=== PATIENT | female | born 1960 | race Caucasian/White ===

== ENCOUNTER → 2016-09-12 | Outpatient (CLI) | payer OTHER ==
--- NOTE | 2016-09-12 16:49 | US ---
EXAMINATION TYPE: US pelvis complete transvag DATE OF EXAM: 09/12/2016 4:19 PM COMPARISON: NONE CLINICAL HISTORY: 55-year-old female hypertrophy of uterus Date of LMP: 4 years ago TECHNIQUE: Transabdominal sonographic images of the pelvis were obtained. Transvaginal scanning was medically necessary to better evaluate the anatomy. FINDINGS: Uterus: Markedly heterogeneous and unable to penetrate transvaginally. It measures approximately 15. 8 x 6.0 x 14.2cm . Multiple fibroids are present, largest along the right fundus measuring 8.8 cm. Endometrial Stripe: Obscured. Right Ovary: 3.9 x 2.4 x 1.8cm with a tiny 6 mm cyst. Left Ovary: unable to visualize No evident adnexal abnormality or cul-de-sac free fluid. IMPRESSION: 1. Bulky fibroid uterus. Largest fibroid measures up to nearly 9 cm. 2. The endometrial stripe is obscured. Also, the uterus was suboptimally visualized on transvaginal s hugo. If fibroid mapping or further assessment of the junctional anatomy is desired, consider fem analy pelvic MRI. 3. Unable to visualize the left ovary.
== END | disposition home or self-care (01) ==
LOC: RADUSWWP 15:48
PROVIDERS: ATTEND Family Medicine
DX: D25.9 Leiomyoma of uterus, unspecified (principal)
CPT/HCPCS: 76830; 76856

== ENCOUNTER 2016-10-13 16:25 | Emergency (ER) | payer OTHER ==
[2016-10-13 16:49] VITALS: BP 123/75; PULSE 70; RESP 18; TEMP 98.2
== END 2016-10-13 18:16 | disposition left against medical advice (07) ==
LOC: EC 16:25
DX: M54.9 Dorsalgia, unspecified (principal)
CPT/HCPCS: 99499

== ENCOUNTER → 2016-10-13 | Outpatient (CLI) | payer OTHER ==
--- NOTE | 2016-10-15 10:07 | MM ---
Reason for exam: clinical finding. Baseline mammogram. History: Patient is postmenopausal and is nulliparous. Physical Findings: Nurse did not find any significant physical abnormalities on exam. MG Diagnostic Mammo w CAD SKIP Bilateral CC, MLO, and LM view(s) were taken. Finding: There are grouped/clustered calcifications in both breasts. These results were verbally communicated with the patient and result sheet given to the patient on 10/13/16. ASSESSMENT: Suspicious, BI-RAD 4 Probably benign, BI-RAD 3 finding in the left breast. Suspicious, BI-RAD 4 abnormality in the right breast. RECOMMENDATION: Stereotactic core biopsy of the right breast. Called Dr. Martinez with mammographic findings and has scheduled an appointment for the patient for 11/20/16 at 9:[address] Obrien. PRELIMINARY REPORT CALLED AND FAXED TO DR. OBRIEN ON 10/15/16 AT 300/TP. Follow-up diagnostic mammogram of the left breast in 6 months.
== END | disposition home or self-care (01) ==
LOC: RADMAMWWP 14:45
PROVIDERS: ATTEND Family Medicine
DX: N63 Unspecified lump in breast (principal)

== ENCOUNTER → 2016-11-05 | Outpatient (CLI) | payer OTHER ==
--- NOTE | 2016-11-05 12:04 | XR ---
EXAMINATION TYPE: XR cervical spine comp DATE OF EXAM: 11/05/2016 11:58 AM COMPARISON: NONE HISTORY: Cephalgia TECHNIQUE: 5 view cervical spine FINDINGS: Foramen are patent. Prevertebral space is normal. Disc heights are preserved. Vertebral bod y heights are preserved. Alignment is normal. Odontoid is unremarkable. IMPRESSION: 1. Normal 5 view cervical spine.
--- NOTE | 2016-11-05 12:05 | XR ---
EXAMINATION TYPE: XR shoulder complete RT DATE OF EXAM: 11/05/2016 11:58 AM COMPARISON: NONE HISTORY: Pain TECHNIQUE: Shoulder examined in 3 FINDINGS: The humeral head articulates with the glenoid. The acromio-clavicular junction is normal. No acute fractures or dislocations are evident. A follow up study can be performed 7-10 days from acute trauma for continued pain. IMPRESSION: 1. Normal Shoulder
== END | disposition home or self-care (01) ==
LOC: RADXRMAIN 11:12
PROVIDERS: ATTEND Family Medicine
DX: M25.511 Pain in right shoulder (principal); M54.2 Cervicalgia
CPT/HCPCS: 72050

== ENCOUNTER → 2016-12-08 | Day surgery (SDC) | payer OTHER ==
[~2016-12-08] MED LIST: ALPRAZolam 0.25 MG TAB ONE; BACITRACIN OINT 1 EACH PACKET TOPICAL ONE; LIDOCAINE 1% INJ 10MG/ML (20 ML MDV) ONE; SODIUM BICARB 4% 5 ML VIAL (0.48 MEQ/ML) ONE
--- NOTE | 2016-12-08 17:07 | MM ---
EXAMINATION TYPE: MG stereo VAD BX RT DATE OF EXAM: 12/08/2016 4:34 PM COMPARISON: 10/13/2016 CLINICAL HISTORY: 56-year-old female referred for right breast calcification biopsy TECHNIQUE: Stereotactic guided core biopsy of the right breast. FINDINGS: The procedure of stereotactic guided core biopsy was explained to the patient. Benefits, alternatives, and risks were discussed. An informed consent was then obtained. The shortness pathway for biopsy was from above. A lateral approach was chosen as the microcalcifications could not be as well visualized with a CC approach. I performed the localization followed by the procedure. An 8 gauge mammotome vacuum assisted biopsy gun was used to obtain 6 core samples. The patient tolerated the procedure well without any immediate complication. The patient was kept in the radiology department for short stay after the procedure and then discharged home in stable condition. Numerous targeted calcifications are identified in specimen mammogram. Post biopsy mammogram shows the clip to appear in satisfactory position relative to the targeted area of concern on the preprocedure images. IMPRESSION: SUCCESSFUL, UNCOMPLICATED STEREOTACTIC GUIDED CORE BIOPSY OF RIGHT BREAST UPPER OUTER QUADRANT MICROCALCIFICATIONS, FULL PATHOLOGY RESULTS TO FOLLOW. RECOMMENDATION: 1. Follow-up pathology for the right breast. 2. Six-month follow-up mammogram for the left breast calcifications. 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 CALCIFICATIONS IDENTIFIED. RECOMMENDATION: 1. Surgical consult of the right breast. 2. Given pathologic findings in the right breast, recommend proceeding with stereotactic core needle biopsy of left breast microcalcifications at this time rather than 6 month followup. MTDD
== END ==
LOC: RADMAMWWP 13:42
PROVIDERS: ATTEND Family Medicine
DX: D05.11 Intraductal carcinoma in situ of right breast (principal); N64.89 Other specified disorders of breast; R92.8 Other abnormal and inconclusive findings on diagnostic imaging of breast
CPT/HCPCS: 88305; 88342; 88341; 19081; A4648; J2001

== ENCOUNTER → 2017-01-10 | Outpatient (CLI) | payer OTHER ==
--- NOTE | 2017-01-14 07:00 | BMR ---
EXAMINATION TYPE: MR breast BILAT wo/w con DATE OF EXAM: 01/10/2017 11:25 AM HISTORY: Newly diagnosed right-sided breast cancer after stereotactic guided core biopsy showing low- grade DCIS. CONTRAST: Multiplanar, multisequence images of the breasts were acquired utilizing 12 mL intravenous MultiHance gadolinium contrast. TECHNIQUE: A series of fat and water weighted images in the long and short axis views of both breasts are obtained in conjunction with dynamic contrast MRI with subtraction technique. Three-dimensional and additional postprocessing imaging is created on independent workstation and reviewed during [facility] interpretation of this study. REFERENCE: Diagnostic bilateral breast mammogram October 13, 2016 BI-RADS 3 left breast. BI-RADS 4 r ight breast. FINDINGS: There is heterogeneously dense fibroglandular tissue redemonstrated throughout both breasts . There are few tiny simple appearing cysts scattered throughout both breasts noted on T2 weighted im ages. There is mild asymmetric parenchymal enhancement bilaterally, left greater than right. Bilateral benign appearing axillary lymph nodes are seen. No suspicious intramammary lymph nodes are identified. The chest wall is intact. Regarding the left breast there is some asymmetric glandular enhancement posterior depth upper outer quadrant that is believed to correlate to area of group of calcifications seen on mammogram. Dynamic postcontrast sequences show fairly benign gradual enhancement at this level. There is additional 3 mm round focus middle depth in the upper slight medial aspect near 1:00 position with benign gradual en hancement that is well-defined and T2 hyperintense favoring benign etiology, too small to further ch aracterize. No pathologic enhancement is clearly seen. No suspicious masses are clearly seen. Regarding the right breast there is artifact from biopsy clip noted upper outer quadrant seen best ax ial STIR image 23 and post contrast image 161. Linear scar from lateral approach is seen. There is mi nimal residual enhancement just medial to artifact from clip. No additional areas of abnormal patholo gic enhancement or suspicious masses in right breast are identified. IMPRESSION: Biopsy-proven malignancy right breast. Increasing group of calcifications left breast not overly suspicious on MRI but correlation is present. No MRI evidence for additional area of invasive malignancy in either breast. BI-RADS 6 right breast- biopsy-proven malignancy. BI-RADS 4 left breast - increasing group of calcifications in patient with known newly diagnosed carc inoma opposite breast. Recommendation: Appropriate surgical management for newly diagnosed right breast carcinoma. Would adv ise stereotactic guided core biopsy of group of calcifications left breast.
== END | disposition home or self-care (01) ==
LOC: RADMRIMAIN 09:58
PROVIDERS: ATTEND Internal Medicine Hematology & Oncology
DX: C50.911 Malignant neoplasm of unspecified site of right female breast (principal); R92.1 Mammographic calcification found on diagnostic imaging of breast
CPT/HCPCS: 0159T; C8908; A9577; 77059

== ENCOUNTER → 2017-01-16 | Outpatient (CLI) | payer OTHER ==
--- NOTE | 2017-01-16 12:03 | XR ---
EXAMINATION TYPE: XR lumbosacral spine min 4V DATE OF EXAM: 01/16/2017 11:31 AM COMPARISON: NONE HISTORY: Low back pain TECHNIQUE: 5 view lumbar spine FINDINGS: Mild facet degenerative changes present. Disc heights are preserved. Vertebral body heights are preserved. Alignment is normal. No spondylolytic defects are evident. There is a grade 1 spondyl olisthesis of L4 anterior and L5. IMPRESSION: 1. Grade 1 spondylolisthesis of L4 anterior to L5. 2. Minimal facet degenerative changes.
== END ==
LOC: RADXRMAIN 11:13
PROVIDERS: ATTEND Family Medicine
DX: M43.16 Spondylolisthesis, lumbar region (principal); M47.816 Spondylosis without myelopathy or radiculopathy, lumbar region
CPT/HCPCS: 72110

== ENCOUNTER → 2017-02-23 | Outpatient (CLI) | payer OTHER ==
--- NOTE | 2017-02-23 09:02 | MR ---
MR lumbar spine wo con CLINICAL HISTORY: Spondylolisthesis lsp, back pain Multiplanar, multiecho imaging of the lumbar spine was obtained without contrast on a 3 Emily magnet. REFERENCE: Previous study dated 03/05/2016. FINDINGS: Paraspinal soft tissues are normal. Vertebral body height and alignment are maintained. There is no spondylolysis or spondylolisthesis. Cord signal is normal. The conus ends normally at the level of the mid body of L2. At T12-L1, there is mild facet arthropathy. At L1-2,The intervertebral foramina are well maintained. There is minimal hypertrophic spondylosis an teriorly. There is no significant compressive discopathy. There is mild capsulitis and hypertrophic c hange in the facets. At L2-3, the intervertebral foramina are well maintained. There is no significant compressive discopa thy. There is mild hypertrophic change and capsulitis within the facets. At L3-4, there is mild disc space loss. The intervertebral foramina are well maintained. There is a d iffuse disc displacement. This hypertrophic changes in the facets. There is mild trefoiling of the th ecal sac. At L4-5, is mild disc space loss. There is mild, bilateral intervertebral foraminal narrowing, worse on the left than the right. There is a diffuse disc displacement. There are fairly marked hypertrophi c changes in the facets. There is mild trefoiling of the thecal sac. At L5-S1, there is mild facet arthropathy. IMPRESSION: 1. DIFFUSE DEGENERATIVE DISC DISEASE AND FACET ARTHROPATHY. 2. NO SIGNIFICANT COMPRESSIVE DISCOPATHY. 3. LEFT GREATER THAN RIGHT INTERVERTEBRAL FORAMINAL NARROWING, L4-5.
== END | disposition home or self-care (01) ==
LOC: RADMRIMAIN 07:14
PROVIDERS: ATTEND Family Medicine
DX: M99.73 Connective tissue and disc stenosis of intervertebral foramina of lumbar region (principal); M51.36 Other intervertebral disc degeneration, lumbar region; M46.96 Unspecified inflammatory spondylopathy, lumbar region
CPT/HCPCS: 72148

== ENCOUNTER → 2017-02-26 | Day surgery (SDC) | payer OTHER ==
[2017-02-26 13:48] VITALS: RESP 16; BMI 25.0
--- NOTE | 2017-02-26 14:47 | USB ---
Reason for exam: additional evaluation requested from prior study. History: Patient is postmenopausal, has history of breast cancer at age 56, and is nulliparous. Malignant MG stereo VAD BX RT of the right breast, December 08, 2016. US Breast LT Left breast ultrasound includes all four quadrants, the retroareolar region and axilla. Finding demonstrates a 0.4 x 0.2 x 0.5cm mixed lesion at 1 o'clock. These results were verbally communicated with the patient and result sheet given to the patient on 02/26/17. ASSESSMENT: Suspicious, BI-RAD 4 RECOMMENDATION: Ultrasound core biopsy of the left breast. (1 o'clock, 7cm from the nipple)
--- NOTE | 2017-02-26 16:12 | USB ---
EXAMINATION TYPE: US biopsy breast VAD LT DATE OF EXAM: 02/26/2017 CLINICAL HISTORY: R92.8 ABN MAMMOGRAM. Abnormal MRI left breast, known cancer TECHNIQUE: Ultrasound guided core biopsy of left breast. COMPARISON: MRI report 01/10/2017 FINDINGS: The procedure of ultrasound guided core biopsy was explained to the patient. Benefits, alt ernatives, and risks were discussed. An consultation with the referring physician, biopsy of the ultr asound abnormality is recommended prior to stereotactic core biopsy. Prescanning was performed which identified 2 hypoechoic areas at the 1:00 position left breast, either which potentially could corres pond to the MRI description. The decision to biopsy both of these nearly adjacent lesions was made fo r with the patient. An informed consent was then obtained. A timeout was performed. The patient was placed in supine positioning for imaging and for the procedure. The overlying skin w as prepped and draped in usual sterile fashion. Lidocaine buffered with bicarbonate was used as anes thetic into the skin and subcutaneous tissue up to area of concern in the left breast. A single jamee was made with surgical scalpel. Under ultrasound guidance, a 12-gauge vacuum assisted biopsy gun device was used to obtain 10 core sa mples. Following this, a biopsy clip was left adjacent to the lesion. This lesion was labeled 1:00 position zone C and is against the chest wall. Under ultrasound guidance, a separate through the same entrance skin site 12-gauge vacuum assisted bi opsy gun device was used to obtain 4 core samples the second site labeled 1:00 position axillary tail which is near the first biopsy site. The 4 biopsies appear to completely removed this location. Foll owing this, a biopsy clip was left adjacent to the lesion. The patient tolerated the procedure well without any immediate complication. The patient was kept in the radiology department for transfer to the stereotactic core room for an additional procedure. IMPRESSION: 1. Successful ultrasound guided core biopsies 2 lesions left 1:00 position discussed above. Recommendations: 1. Recommendations are pending pathology results. IMPRESSION: Successful, uncomplicated ultrasound guided core biopsy of area of concern in the breast, full pathology results to follow.
[2017-02-26 16:48] VITALS: BP 120/78; PULSE 64; TEMP 98.4
--- NOTE | 2017-03-02 12:54 | MM ---
EXAMINATION TYPE: MG stereo VAD BX LT DATE OF EXAM: 02/26/2017 COMPARISON: 10/13/2016 CLINICAL HISTORY: Abnormal mammogram TECHNIQUE: Stereotactic guided core biopsy of left breast. FINDINGS: The procedure of stereotactic guided core biopsy was explained to the patient. Benefits, a lternatives, and risks were discussed. An informed consent was then obtained. [facility] was chosen. Shortness pathway was medial lateral oblique approach. Radiology performed the localization, radiology Dr. Ranegl performed the remainder of the procedure. A vacuum assisted biopsy gun was used to obtain multiple core samples. The patient tolerated the procedure well without any immediate complication. The patient was kept in the radiology department for short stay after the procedure and then discharged home in stable condi tion. Targeted calcifications are identified in specimen mammogram. Post biopsy mammogram shows the clip to appear in satisfactory position relative to the targeted area of concern on the preprocedure images. IMPRESSION: 1. Successful stereotactic core biopsy left breast calcifications.
== END ==
LOC: EDSTATUS 02-03 09:40 → RADUSWWP 13:28
PROVIDERS: ATTEND Surgery
DX: D05.82 Other specified type of carcinoma in situ of left breast (principal); D05.12 Intraductal carcinoma in situ of left breast; N60.22 Fibroadenosis of left breast; N64.89 Other specified disorders of breast; Z85.3 Personal history of malignant neoplasm of breast; Z88.6 Allergy status to analgesic agent; Z88.5 Allergy status to narcotic agent
CPT/HCPCS: 88305; 88342; 88341; 19081; 19083; 19084; 76641; A4648 ×2; J2001

== ENCOUNTER 2017-04-01 09:23 | Day surgery (SDC) | payer OTHER ==
--- NOTE | 2017-03-13 13:40 | P.GSHP ---
History of Present Illness H&P Date: 03/13/17 Chief Complaint: Bilateral breast cancer Patient is known to our service. She underwent initial workup of the right breast and was found to have calcifications. A stereotactic core biopsy revealed low-grade DCIS at that time. She was initially seen by different surgeon but switched over to my service following that. She is a family history of breast cancer and an aunt on the father's side. She has seen oncology. There was also abnormalities in the left hand side that warranted a MRI. Subsequent biopsies 3 revealed high-grade DCIS and low to intermediate grade DCIS. Because of the bilaterality patient is interested in bilateral mastectomy. She is ER/MO positive. Past Medical History Past Medical History: Fibromyalgia Additional Past Medical History / Comment(s): Chronic back pain History of Any Multi-Drug Resistant Organisms: None Reported Past Surgical History: No Surgical Hx Reported Past Anesthesia/Blood Transfusion Reactions: No Reported Reaction Past Psychological History: No Psychological Hx Reported Smoking Status: Current every day smoker Past Alcohol Use History: None Reported Past Drug Use History: None Reported - Past Family History Mother Family Medical History: Myocardial Infarction ([place]) Father Family Medical History: Myocardial Infarction ([place]) Medications and Allergies Home Medications Medication Instructions Recorded Confirmed Type Pregabalin [Lyrica] 400 mg PO BID 10/13/16 02/26/17 History HYDROcodone/APAP 7.5-325MG [[place] 7.5 each PO Q6HR PRN 02/24/17 02/26/17 History 7.5-325] Allergies Allergy/AdvReac Type Severity Reaction Status Date / Time tramadol Allergy Unknown Verified 02/26/17 13:49 acetaminophen AdvReac Rash/Hives Verified 02/26/17 13:49 ibuprofen [From Motrin] AdvReac Rash/Hives Verified 02/26/17 13:49 Surgical - Exam Physical exam: General: Well-developed, well-nourished HEENT: Normocephalic, sclerae nonicteric Chest: Previous scars noted bilaterally, no palpable masses bilaterally, no adenopathy Abdomen: Nontender, nondistended Extremities: No edema Neuro: Alert and oriented Assessment and Plan (1) Bilateral breast cancer Narrative/Plan: The clinical scenario was discussed in detail with the patient. Lumpectomy on the right-hand side and possibly even on the left-hand side was discussed briefly is an option however given the bilaterality the patient was most interested in bilateral mastectomy which I believe is the most reasonable course of action. The noninvasiveness of these lesions were discussed with the patient. Because of the mastectomy being the chosen procedure [place] lymph node biopsy was advised. The risks of bleeding, infection, seroma, numbness, recurrence, potential need for axillary dissection, lymphedema, and anesthesia- related, locations were discussed. The option of rest reconstruction was also discussed. She is not interested in that because of family members who have had poor experience with that. All these options were thoroughly discussed and the patient would like for us to proceed at this time. Status: Acute
[2017-03-25 09:06] VITALS: BMI 25.0
[~2017-04-01 09:23] MED LIST changes: -ALPRAZolam 0.25 MG TAB ONE; +ALPRAZolam 0.5 MG TAB PO PRN; -BACITRACIN OINT 1 EACH PACKET TOPICAL ONE; +DEXAMETHASONE SOD PHOSPHATE 10 MG/ML 1 ML VIAL IV ONE; +HEPARIN SODIUM,PORCINE 5,000 UNIT/ML 1 ML VIAL SQ ONE; +LACTATED RINGERS 1,000 ML IV SCH; +LIDOCAINE 1% 20 ML VIAL (10MG/ML) FOR IV START INTRADERMA PRN; -LIDOCAINE 1% INJ 10MG/ML (20 ML MDV) ONE; +Pre Op ABX Message 1 EACH MISC MISCELLANE ONE; +SCOPOLAMINE 1.5MG/72HR PATCH TRANSDERM ONE; -SODIUM BICARB 4% 5 ML VIAL (0.48 MEQ/ML) ONE
[2017-04-01] MEDS ORDERED: ALPRAZolam 0.5 MG TAB PO PRN (10:45)
[2017-04-01] MEDS ORDERED: NALOXONE 0.4 MG/ML 1 ML VIAL IV PRN ×2 (10:45→21:14)
[2017-04-01] MEDS ORDERED: IV FLUID CONTINUATION 1,000 ML IV ONE (15:56)
--- NOTE | 2017-04-01 15:56 | NM ---
EXAMINATION TYPE: NM sentinel node injection, NM sentinel node injection DATE OF EXAM: 04/01/2017 COMPARISON: NONE HISTORY: History of right breast cancer. TECHNIQUE AND FINDINGS: The procedure of sentinel lymph node injection was explained to the patient. The benefits, alternatives, and risks were discussed. An informed consent was then obtained. Overlying skin is cleaned with sterile alcohol. Lidocaine buffered with bicarbonate was used as anes thetic into the skin and subcutaneous tissue surrounding the nipple. Following this, 540 (accession [id number]), 525 (accession [id number]) uCi Tc 99m Filtered Sulfur Colloid was injected into 4 equivalent doses at 12, 3, 6, and 9:00 position surrounding the right nipple intradermally. The injection sites were massaged by instrumentation technologist for 10 minutes after injection. T he patient tolerated the procedure well without any immediate complication. The patient was kept in the radiology department for short stay after the procedure and then taken to surgery for surgical pr ocedure what is presumed intraoperative gamma probe will be used for sentinel lymph node detection. IMPRESSION: Right breast radiotracer injection for sentinel node localization as above.
[2017-04-01] MEDS ORDERED: MIDAZOLAM 2 MG/2 ML VIAL IV ONE (15:58)
[2017-04-01] MEDS ORDERED: fentaNYL (PF) 50 MCG/ML 2 ML AMP IV ONE (15:58)
[2017-04-01] MEDS ORDERED: HYDROmorphone (PF) 1 MG/ML ONE (16:55)
[2017-04-01] MEDS ORDERED: ONDANSETRON 4 MG/2 ML VIAL ONE (16:55)
[2017-04-01] MEDS ORDERED: METHYLENE BLUE 10 MG/ML 1 ML VIAL INJ ONE (16:55)
[2017-04-01] MEDS ORDERED: LIDOCAINE 1% INJ 10MG/ML (20 ML MDV) ONE (16:55)
[2017-04-01] MEDS ORDERED: fentaNYL (PF) 50 MCG/ML 2 ML AMP ONE (16:55)
[2017-04-01] MEDS ORDERED: SUCCINYLCHOLINE CHLORIDE 100 MG/5 ML SYR IV ONE (16:55)
[2017-04-01] MEDS ORDERED: PROPOFOL 10 MG/ML 20 ML VIAL IV ONE (16:55)
[2017-04-01] MEDS ORDERED: GLYCOPYRROLATE 0.2 MG/ML 2 ML VIAL ONE (16:55)
[2017-04-01] MEDS ORDERED: NEOSTIGMINE 1 MG/ML 10 ML VIAL ONE (16:55)
[2017-04-01] MEDS ORDERED: ROCURONIUM BROMIDE 10 MG/ML 10 ML VIAL IV ONE (16:55)
[2017-04-01] MEDS ORDERED: MIDAZOLAM 2 MG/2 ML VIAL ONE (16:55)
[2017-04-01] MEDS ORDERED: LACTATED RINGERS 1,000 ML IV ONE (17:05)
[2017-04-01] MEDS: HYDROmorphone 1 MG/ML 1 ML SYRINGE IVP PRN ×5 (19:43→21:59)
[2017-04-01] MEDS: HYDROmorphone 1 MG/ML 1 ML SYRINGE IVP ONE ×2 (20:16→20:33)
[2017-04-01] MEDS ORDERED: KETOROLAC 30 MG/ML 1 ML VIAL IVP ONE (20:16)
[2017-04-01] MEDS ORDERED: ONDANSETRON 4 MG/2 ML VIAL IVP PRN (21:14)
--- NOTE | 2017-04-01 21:19 | P.OP ---
Date of Procedure: 04/01/17 Preoperative Diagnosis: Postoperative Diagnosis: Procedure(s) Performed: SiPREOPERATIVE DIAGNOSIS: Bilateral breast cancer POSTOPERATIVE DIAGNOSIS: Same PROCEDURE: Bilateral simple mastectomy with bilateral sentinel lymph node biopsy SURGEON: Camille EBL: Minimal ANESTHESIA: General COMPLICATIONS: None OPERATIVE PROCEDURE: Patient was placed on the operating room table in the supine position. 3 mL of methylene blue was injected into the subareolar space bilaterally. The breast was then massaged for 5 minutes. Using the skin marker the proposed incision sites were drawn out on the chest wall. The right side was addressed first. The superior incision was first created. The incision was elliptical in nature encompassing the nipple areolar complex. Flaps were raised superiorly until the chest wall was reached. The axilla was then addressed. Blunt dissection surprisingly did reveal immediately 2 hot and blue lymph nodes along with the feeding blue colored lymphatic vessel. Both of these lymph nodes were removed. An additional sentinel was identified as well and removed. The mastectomy incision was then created inferiorly and flaps were again raised until the chest wall was reached. The breast was removed from the chest wall using electrocautery. Multiple vessels were divided using either electrocautery or the clip twitchell operator. The area was irrigated. No bleeding was seen. The sentinel lymph nodes and right simple mastectomy specimen were sent separately for permanent sectioning. The left side was addressed in a similar fashion. Again an incision was elliptical in nature encompassing the nipple areolar complex. Flaps were raised superiorly until the chest wall was reached. The axilla was then addressed. On the left-hand side an additional 3 sentinel lymph nodes were found and sent to pathology for permanent sectioning. The flaps were then raised inferiorly and the breast was removed from the chest wall in a similar fashion using electrocautery. Small vessels were clipped using the Ligaclip. A drain was placed beneath the flaps of the mastectomy incision bilaterally. The subcutaneous tissues were then closed using 3-0 Vicryl sutures and the skin was closed using a running 4-0 Monocryl stitch. Prineo dressing was used along the entire length of the incision with Dermabond. The drain was sutured in place using a 2-0 silk stitch. DISPOSITION: Stable to recovery room Implants: Indications for Procedure: Operative Findings: Description of Procedure:
[2017-04-01] MEDS: HEPARIN SODIUM,PORCINE 5,000 UNIT/ML 1 ML VIAL SQ SCH ×2 (23:43→23:49)
[2017-04-02 02:26] VITALS: RESP 16
[2017-04-02] MEDS: D5-0.45% NACL WITH KCL 20MEQ/L 1,000 ML IV SCH ×4 (03:43→12:06)
[2017-04-02] MEDS: HYDROmorphone 1 MG/ML 1 ML SYRINGE IVP PRN ×4 (03:48→15:42)
[2017-04-02] MEDS: FAMOTIDINE 20 MG TAB PO SCH ×2 (09:05→20:54)
[2017-04-02] MEDS: HEPARIN SODIUM,PORCINE 5,000 UNIT/ML 1 ML VIAL SQ SCH ×2 (09:06→15:42)
--- NOTE | 2017-04-02 19:50 | P.PN ---
Subjective Principal diagnosis: Bilateral breast cancer Patient complaining of mild to moderate discomfort today. She does admit that its improved from yesterday. She is ambulating. Drains have gone from sanguinous to serosanguineous. Objective - Vital Signs Vital signs: Vital Signs Temp 98.9 F 04/02/17 16:30 Pulse 74 04/02/17 16:30 Resp 16 04/02/17 16:30 BP 112/69 04/02/17 16:30 Pulse Ox 95 04/02/17 16:30 Intake & Output 04/02/17 04/02/17 04/03/17 06:59 18:59 06:59 Intake Total 940 200 Output Total 750 900 Balance 190 -700 Intake: IV 300 Oral 640 200 Output: Drainage 50 100 Left 30 50 right "A" 20 50 Urine 650 800 Estimated Blood Loss 50 Other: Voiding Method Toilet Toilet # Voids 1 2 - Exam Bilateral chest incisions clean and dry without ischemia only mild tenderness no hematoma Assessment and Plan (1) Bilateral breast cancer Narrative/Plan: Continue increasing activity. Anticipate discharge tomorrow. Status: Acute
[2017-04-02] MEDS: HYDROcodone/APAP 5-325MG 1 EACH TAB PO PRN (20:46)
[2017-04-03] MEDS: HEPARIN SODIUM,PORCINE 5,000 UNIT/ML 1 ML VIAL SQ SCH (00:46)
[2017-04-03] MEDS: HYDROcodone/APAP 5-325MG 1 EACH TAB PO PRN ×3 (00:47→10:15)
[2017-04-03] MEDS: FAMOTIDINE 20 MG TAB PO SCH (09:01)
[2017-04-03 09:57] VITALS: BP 142/83; PULSE 75; TEMP 96.9
--- NOTE | 2017-04-03 11:22 | P.DS ---
Providers Expected date of discharge: 04/03/17 Attending physician: Emanuel Obrien Primary care physician: Abhishek Martinez - Discharge Diagnosis(es) (1) Bilateral breast cancer Patient is admitted for elective bilateral mastectomy. The surgery did not start until later in the afternoon as there was not enough radiotracer ordered for her bilateral sentinel lymph node procedure. Postoperatively the patient has done well. Slightly greater than expected discomforts. Drains are draining appropriately. Vital signs of been stable. Her incisions are well healing with no evidence of ischemia or hematoma. She would like to go home today. The patient will follow up me in the office in one week. Prescription [place] 7.5 provided. Status: Acute Plan - Discharge Summary New Discharge Prescriptions: No Action Pregabalin [Lyrica] 200 mg PO BID HYDROcodone/APAP 7.5-325MG [[place] 7.5-325] 1 tab PO Q6HR PRN PRN Reason: Pain Discharge Medication List Pregabalin [Lyrica] 200 mg PO BID 10/13/16 [History] HYDROcodone/APAP 7.5-325MG [[place] 7.5-325] 1 tab PO Q6HR PRN 02/24/17 [History] Follow up Appointment(s)/Referral(s): Emanuel Obrien MD [Medical Doctor] - 04/09/17 11:10 am Patient Instructions/Handouts: [facility] Drain Care (DC), Skin Adhesive Care (DC), Mastectomy (DC) Activity/Diet/Wound Care/Special Instructions: [facility] [phone] No heavy lifting, limit to 10 pounds or less. You may shower today, but no soaking baths or going underwater. If any fever greater than 101, redness or drainage from the incisions or foul drainage in the drains, call your doctor or come to ER Drink plenty of fluids and eat as tolerated Empty and record the drains 3-4 times a day. Please review the attached instructions on mastectomy, SHAILA drains, and skin adhesives Discharge Disposition: HOME WITH HOME HEALTH SERVICES
== END 2017-04-03 10:26 | disposition home health service (06) ==
LOC: OR 09:23 → 6PED 10:50 → OR 04-03 10:26
PROVIDERS: ATTEND Surgery
DX: D05.11 Intraductal carcinoma in situ of right breast (principal); Z80.3 Family history of malignant neoplasm of breast; M79.7 Fibromyalgia; Z79.899 Other long term (current) drug therapy; Z88.6 Allergy status to analgesic agent; Z88.5 Allergy status to narcotic agent
CPT/HCPCS: 88342; 88307; 88341; 38792; 19307; A9541; J2250; J1644 ×3; J1100; J2710; J2405; J2001; Q9968; J3010; J1885; J1170 ×2; J0330; J2704

== ENCOUNTER 2017-06-16 11:00 | Emergency (ER) | payer OTHER ==
[2017-06-16 11:07] VITALS: BP 140/73; PULSE 73; RESP 18; TEMP 96.9
[2017-06-16] MEDS ORDERED: HYDROcodone/APAP 7.5-325MG 1 EACH TAB PO ONE (11:21)
--- NOTE | 2017-06-16 11:50 | XR ---
EXAMINATION TYPE: XR chest 2V DATE OF EXAM: 06/16/2017 COMPARISON: NONE HISTORY: Contusion after fall with history of breast cancer TECHNIQUE: Frontal and lateral views of the chest are obtained. FINDINGS: There is no focal air space opacity, pleural effusion, or pneumothorax seen. The cardiac silhouette size is within normal limits. The osseous structures are intact. Surgical clips are seen within the right breast tissue in the left breast tissue from prior mastectomy. IMPRESSION: No acute cardiopulmonary process. No pneumothorax or displaced rib fractures.
--- NOTE | 2017-06-16 12:25 | ED ---
Fall HPI - General Chief Complaint: Fall Stated Complaint: Fall-Chest Pain Time Seen by Provider: 06/16/17 11:16 Source: patient, RN notes reviewed Mode of arrival: ambulatory Limitations: no limitations - History of Present Illness Initial Comments: This a 56-year-old female presents emergency Department chief complaint of chest wall pain. Patient states that a few hours prior arrival she was hanging up some curtains in which she stepped on a curtain on the ground and states that she slipped into her dryer. She states she was less than 1 foot away from it when it she struck it. Patient states that she does not feel short breath she states she's has pain along her ribs. Denies head injury no LOC. Patient denies any bruising - Related Data Home Medications Medication Instructions Recorded Confirmed Pregabalin [Lyrica] 200 mg PO BID 10/13/16 06/16/17 HYDROcodone/APAP 7.5-325MG [[place] 1 tab PO Q6HR PRN 02/24/17 06/16/17 7.5-325] Escitalopram [Lexapro] 10 mg PO DAILY 06/16/17 06/16/17 Allergies Allergy/AdvReac Type Severity Reaction Status Date / Time tramadol Allergy Unknown Verified 06/16/17 11:34 ibuprofen [From Motrin] AdvReac Rash/Hives Verified 06/16/17 11:34 Review of Systems ROS Statement: Those systems with pertinent positive or pertinent negative responses have been documented in the HPI. ROS Other: All systems not noted in ROS Statement are negative. 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, varicose veins, arthritis in spine, scratch markes on arm, History of Any Multi-Drug Resistant Organisms: None Reported Past Surgical History: Breast Surgery Additional Past Surgical History / Comment(s): breast biopsy Past Anesthesia/Blood Transfusion Reactions: Motion Sickness Past Psychological History: No Psychological Hx Reported Smoking Status: Current every day smoker Past Alcohol Use History: None Reported Past Drug Use History: None Reported - Past Family History Mother Family Medical History: Cancer Father Family Medical History: Myocardial Infarction ([place]) General Exam Limitations: no limitations General appearance: alert, in no apparent distress Head exam: Present: atraumatic, normocephalic, normal inspection Eye exam: Present: normal appearance, PERRL, EOMI. Absent: scleral icterus, conjunctival injection, periorbital swelling Neck exam: Present: normal inspection, full ROM. Absent: tenderness, meningismus, lymphadenopathy Respiratory exam: Present: normal lung sounds bilaterally, chest wall tenderness (Mild anterior chest wall tenderness). Absent: respiratory distress , wheezes, rales, rhonchi, stridor Cardiovascular Exam: Present: regular rate, normal rhythm, normal heart sounds. Absent: systolic murmur, diastolic murmur, rubs, gallop, clicks GI/Abdominal exam: Present: soft, normal bowel sounds. Absent: distended, tenderness, guarding, rebound, rigid Course Vital Signs 06/16/17 11:05 Temperature 96.9 F L Pulse Rate 73 Respiratory 18 Rate Blood Pressure 140/73 O2 Sat by Pulse 99 Oximetry Medical Decision Making - Medical Decision Making 56-year-old female presented emergency department for chest wall pain. Patient had low impact injury to her chest. Patient's vitals are stable patient x-ray reviewed no acute fracture. Patient is mildly tender. She does have pain medication at home. Return parameters were discussed. Disposition Clinical Impression: Chest wall contusion Disposition: HOME SELF-CARE Condition: Stable Instructions: Contusion in Adults (ED) Additional Instructions: Please return to the Emergency Department if symptoms worsen or any other concerns. Referrals: Abhishek Martinez MD [Primary Care Provider] - 1-2 days Time of Disposition: 12:25
== END 2017-06-16 12:32 | disposition home or self-care (01) ==
LOC: EC 11:00
DX: S20.219A Contusion of unspecified front wall of thorax, initial encounter (principal); M79.7 Fibromyalgia; F17.200 Nicotine dependence, unspecified, uncomplicated; Z85.3 Personal history of malignant neoplasm of breast; Z88.6 Allergy status to analgesic agent; Z79.899 Other long term (current) drug therapy; W01.198A Fall on same level from slipping, tripping and stumbling with subsequent striking against other object, initial encounter; Y93.89 Activity, other specified
CPT/HCPCS: 71020; 99283

== ENCOUNTER → 2018-01-12 | Outpatient (CLI) | payer OTHER | END | disposition home or self-care (01) | LOC: CPPFTMAIN 13:40 | PROVIDERS: ATTEND Family Medicine | DX: J44.1 Chronic obstructive pulmonary disease with (acute) exacerbation (principal) | CPT/HCPCS: 94010; 94060; 94726; 94729 ==

== ENCOUNTER → 2018-04-01 | Outpatient (CLI) | payer OTHER ==
--- NOTE | 2018-04-02 08:13 | XR ---
EXAMINATION TYPE: XR knee complete LT DATE OF EXAM: 04/01/2018 COMPARISON: 01/30/2015 HISTORY: History of old injury, order says right knee pain. Manager Acute history says left knee pain. TECHNIQUE: Knee is examined in AP lateral and sunrise views. FINDINGS: Patellofemoral joint space is preserved. Medial and lateral compartments appear normal. No joint effusion is evident. IMPRESSION: 1. Normal three-view left knee.
== END | disposition home or self-care (01) ==
LOC: RADXRMAIN 14:16
PROVIDERS: ATTEND Family Medicine
DX: M25.561 Pain in right knee (principal)

== ENCOUNTER 2018-08-11 17:39 | Emergency (ER) | payer OTHER ==
[2018-08-11 17:43] VITALS: BP 118/79; PULSE 85; RESP 20; TEMP 98.2
--- NOTE | 2018-08-11 18:00 | ED ---
Upper Extremity HPI - General Chief Complaint: Extremity Injury, Upper Stated Complaint: LEFT HAND INJURY FROM FALL Time Seen by Provider: 08/11/18 17:53 Source: patient, RN notes reviewed, old records reviewed Mode of arrival: ambulatory Limitations: no limitations - History of Present Illness Initial Comments: Patient is a 57-year-old female who presents emergency room to chief complaint left hand pain. Patient reports she tripped while carrying blankets up to her house. She reports that she fell with her left hand on a concrete wall. She complains of pain over the second third and fourth metacarpals. Patient reports she is right-handed. Patient has a past medical history of breast cancer remission. She is a smoker. Patient states that she fell at approximately 1:30 this afternoon. She denies any peripheral paresthesias. Patient denies any recent fever, chills, shortness of breath, chest pain, back pain, abdominal pain, nausea vomiting, numbness or tingling, dysuria or hematuria, constipation or diarrhea, headaches or visual changes, or any other current symptoms - Related Data Home Medications Medication Instructions Recorded Confirmed Pregabalin [Lyrica] 200 mg PO BID 10/13/16 06/16/17 HYDROcodone/APAP 7.5-325MG [[place] 1 tab PO Q6HR PRN 02/24/17 06/16/17 7.5-325] Escitalopram [Lexapro] 10 mg PO DAILY 06/16/17 06/16/17 Previous Rx's Medication Instructions Recorded HYDROcodone/APAP 7.5-325MG [[place] 1 tab PO Q6HR PRN #15 tab 06/16/17 7.5-325] Acetaminophen Tab [Tylenol Tab] 650 mg PO Q4H #20 tablet 08/11/18 Allergies Allergy/AdvReac Type Severity Reaction Status Date / Time tramadol Allergy Unknown Verified 08/11/18 17:43 ibuprofen [From Motrin] AdvReac Rash/Hives Verified 08/11/18 17:43 Review of Systems ROS Statement: Those systems with pertinent positive or pertinent negative responses have been documented in the HPI. ROS Other: All systems not noted in ROS Statement are negative. 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, varicose veins, arthritis in spine, scratch markes on arm, History of Any Multi-Drug Resistant Organisms: None Reported Past Surgical History: Breast Surgery Additional Past Surgical History / Comment(s): breast biopsy, bilateral mastecomy Past Anesthesia/Blood Transfusion Reactions: Motion Sickness Past Psychological History: No Psychological Hx Reported Smoking Status: Current every day smoker Past Alcohol Use History: None Reported Past Drug Use History: None Reported - Past Family History Mother Family Medical History: Cancer Father Family Medical History: Myocardial Infarction ([place]) General Exam - General Exam Comments Initial Comments: Well-appearing 57-year-old female. No significant distress. Limitations: no limitations General appearance: alert, in no apparent distress Head exam: Present: atraumatic, normocephalic, normal inspection Eye exam: Present: normal appearance, PERRL, EOMI. Absent: scleral icterus, conjunctival injection, periorbital swelling ENT exam: Present: normal exam, mucous membranes moist Neck exam: Present: normal inspection Respiratory exam: Present: normal lung sounds bilaterally. Absent: respiratory distress, wheezes, rales, rhonchi, stridor Cardiovascular Exam: Present: regular rate GI/Abdominal exam: Present: soft, normal bowel sounds. Absent: distended, tenderness, guarding, rebound, rigid Extremities exam: Present: normal inspection, full ROM, normal capillary refill. Absent: tenderness, pedal edema, joint swelling, calf tenderness Left Upper Arm exam: Present: normal inspection, full ROM Elbow exam: Present: normal inspection, full ROM Forearm Wrist exam: Present: normal inspection, full ROM Hand Wrist exam: Present: full ROM. Absent: normal inspection (swelling over dorsum 2-4 metacarpals, ecchymosis noted. Full ROM of fingers and normal less than 2 sec cap refill. ) Neuro motor exam: Present: wrist extension intact, thumb opposition intact, thumb IP flexion intact, thumb adduction intact, fingers 2-5 abduction intact Vascular: Present: normal capillary refill Back exam: Present: normal inspection Course Vital Signs 08/11/18 17:40 Temperature 98.2 F Pulse Rate 85 Respiratory 20 Rate Blood Pressure 118/79 O2 Sat by Pulse 99 Oximetry Medical Decision Making - Medical Decision Making 57-year-old female presents today with left hand pain. Patient reports she felt. He has bruising and swelling over the second through fourth metacarpals. The same Patient has normal sensation. Patient's x-ray was completed and negative for any acute process. Given an Froilan wrap, insulin. Referral for orthopedic discussed rest, ice, elevate extremity. Patient agrees treatment plan will comply. Return parameters were discussed. - Radiology Data Radiology results: report reviewed Eye exam. No fracture noted. No acute changes. Disposition Clinical Impression: Left hand pain, Hand contusion Disposition: HOME SELF-CARE Condition: Good Instructions: Hand Sprain (ED) Additional Instructions: Patient advised to follow-up with primary care physician and orthopedics pediatric physician. Remain Froilan wrap. Motrin Tylenol for pain. Return to emergency department if any alarming signs or symptoms occur. Prescriptions: Acetaminophen Tab [Tylenol Tab] 650 mg PO Q4H #20 tablet Is patient prescribed a controlled substance at d/c from ED?: No Referrals: Abhishek Martinez MD [Primary Care Provider] - 1-2 days Ayden Pearson MD [STAFF PHYSICIAN] - 1-2 days Time of Disposition: 18:26
--- NOTE | 2018-08-11 18:23 | XR ---
EXAMINATION TYPE: XR hand complete LT DATE OF EXAM: 08/11/2018 COMPARISON: 02/24/2016 HISTORY: Pain TECHNIQUE: 3 views FINDINGS: I see no fracture nor dislocation. Joint spaces are fairly normal. Metacarpals appear inta ct. IMPRESSION: Negative exam. No fracture seen. No change.
== END 2018-08-11 18:54 | disposition home or self-care (01) ==
LOC: EC 17:39
DX: S60.222A Contusion of left hand, initial encounter (principal); M79.7 Fibromyalgia; F17.200 Nicotine dependence, unspecified, uncomplicated; Z85.3 Personal history of malignant neoplasm of breast; Z79.899 Other long term (current) drug therapy; Z88.5 Allergy status to narcotic agent; Z88.6 Allergy status to analgesic agent; W18.09XA Striking against other object with subsequent fall, initial encounter; Y92.009 Unspecified place in unspecified non-institutional (private) residence as the place of occurrence of the external cause
CPT/HCPCS: 99284

== ENCOUNTER 2019-04-21 16:34 | Emergency (ER) | payer OTHER ==
[2019-04-21 16:38] VITALS: BP 158/79; PULSE 70; RESP 18; TEMP 97.6
[2019-04-21] MEDS ORDERED: HYDROcodone/APAP 7.5-325MG 1 EACH TAB PO ONE (17:05)
--- NOTE | 2019-04-21 17:26 | XR ---
EXAMINATION TYPE: XR hand complete RT DATE OF EXAM: 04/21/2019 COMPARISON: NONE HISTORY: Hand pain TECHNIQUE: 3 views FINDINGS: Metacarpals appear intact. I see no fracture nor dislocation. There are no erosions. Joint spaces are fairly normal. IMPRESSION: Negative right hand exam.
--- NOTE | 2019-04-21 17:27 | XR ---
EXAMINATION TYPE: XR wrist complete RT DATE OF EXAM: 04/21/2019 COMPARISON: NONE HISTORY: Pain TECHNIQUE: 4 views FINDINGS: There is no sign of fracture nor dislocation. Joint spaces are normal. Scaphoid is intact. IMPRESSION: Negative right wrist exam.
--- NOTE | 2019-04-21 17:28 | XR ---
EXAMINATION TYPE: XR forearm RT DATE OF EXAM: 04/21/2019 COMPARISON: NONE HISTORY: Pain TECHNIQUE: 2 views FINDINGS: Radius and ulna appear intact. I see no fracture nor dislocation. Elbow joint and wrist tristen nt appear intact. IMPRESSION: Negative right forearm exam.
--- NOTE | 2019-04-21 18:12 | ED ---
General Adult HPI - General Chief complaint: Extremity Injury, Upper Stated complaint: Fall-hand injury Time Seen by Provider: 04/21/19 16:40 Source: patient, RN notes reviewed, old records reviewed Mode of arrival: ambulatory Limitations: no limitations - History of Present Illness Initial comments: 58-year-old female patient denies ED chief complaint of right hand and wrist pain following a fall. Patient reports that she tripped over her cat, had a fall on outstretched arm resulting this injury. Patient denies any trauma to head or neck. Patient's chief complaint is dorsal hand and forearm pain. States that she is not . Systemic: Pt denies fatigue, fever/chills, rash. Pt denies weakness, night sweats, weight loss. Neuro: Pt denies headache, visual disturbances, syncope or pre-syncope. HEENT: Pt denies ocular discharge or irritation, otalgia, rhinorrhea, pharyngitis or notable lymphadenopathy. Cardiopulmonary: Pt denies chest pain, SOB, heart palpitations, dyspnea on exertion. Abdominal/GI: Pt denies abdominal pain, n/v/d. : Pt denies dysuria, burning w/ urination, frequency/urgency. Denies new onset urinary or bowel incontinence. MSK: Pt denies myalgia, loss of strength or function in extremities. Neuro: Pt denies new onset weakness, paresthesias. - Related Data Home Medications Medication Instructions Recorded Confirmed Pregabalin [Lyrica] 200 mg PO BID 10/13/16 06/16/17 HYDROcodone/APAP 7.5-325MG [[place] 1 tab PO Q6HR PRN 02/24/17 06/16/17 7.5-325] Escitalopram [Lexapro] 10 mg PO DAILY 06/16/17 06/16/17 Previous Rx's Medication Instructions Recorded HYDROcodone/APAP 7.5-325MG [[place] 1 tab PO Q6HR PRN #15 tab 06/16/17 7.5-325] Acetaminophen Tab [Tylenol Tab] 650 mg PO Q4H #20 tablet 08/11/18 Allergies Allergy/AdvReac Type Severity Reaction Status Date / Time tramadol Allergy Unknown Verified 04/21/19 16:38 ibuprofen [From Motrin] AdvReac Rash/Hives Verified 04/21/19 16:38 Review of Systems ROS Statement: Those systems with pertinent positive or pertinent negative responses have been documented in the HPI. ROS Other: All systems not noted in ROS Statement are negative. 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, varicose veins, arthritis in spine, scratch markes on arm, History of Any Multi-Drug Resistant Organisms: None Reported Past Surgical History: Breast Surgery Additional Past Surgical History / Comment(s): breast biopsy, bilateral mastecomy Past Anesthesia/Blood Transfusion Reactions: Motion Sickness Past Psychological History: No Psychological Hx Reported Smoking Status: Current every day smoker Past Alcohol Use History: None Reported Past Drug Use History: None Reported - Past Family History Mother Family Medical History: Cancer Father Family Medical History: Myocardial Infarction ([place]) General Exam - General Exam Comments Initial Comments: Constitutional: NAD, AOX3, Pt has pleasant affect. HEENT: NC/AT, trachea midline, neck supple, no lymphadenopathy. Posterior pharynx non erythematous, without exudates. External ears appear normal, without discharge. Mucous membranes moist. Eyes PERRLA, EOM intact. There is no scleral icterus. No pallor noted. Cardiopulmonary: RRR, no murmurs, rubs or gallops, no JVD noted. Lungs CTAB in anterior and posterior perez. No peripheral edema. Abdominal exam: Abdomen soft and non-distended. Abdomen non-tender to palpation in all 4 quadrants. Bowel sounds active in LLQ. No hepatosplenomegaly. No ecchymosis Neuro: CN II-XII grossly intact. No nuchal rigidity. No raccon eyes, no ramirez sign, no hemotympanum. No cervical spinal tenderness. MSK: Mild tenderness to palpation dorsal aspect of forearm and hand, snuffbox tenderness, range of motion of digits intact, capillary refill less than 2 seconds, sensation intact. Patient placed in thumb spica splint, neurovascular intact after splint placement. No posterior calf tenderness bilaterally, homans sign negative bilaterally. Posterior tibialis and radial pulse +2 bilaterally. Sensation intact in upper and lower extremities. Full active ROM in upper and lower extremities, 5/5 stregnth. Limitations: no limitations Course Vital Signs 04/21/19 16:36 Temperature 97.6 F Pulse Rate 70 Respiratory 18 Rate Blood Pressure 158/79 O2 Sat by Pulse 99 Oximetry Medical Decision Making - Medical Decision Making 50-year-old female patient presents to ED chief complaint of hand and wrist pain after fall. Patient also in stable, physical exam displayed mild dorsal tenderness, snuffbox tenderness. Patient plain films negative. Thumb spica splint placed. Patient discharged with outpatient orthopedic follow-up. Case discussed with Dr. Bradshaw. Disposition Clinical Impression: Wrist sprain Disposition: HOME SELF-CARE Condition: Stable Instructions (If sedation given, give patient instructions): Wrist Injury (ED) Additional Instructions: Patient to adhere to previously discussed treatment plan and will take medication(s) as directed. Patient to follow up with PCP in 1-2 days. Patient to return to ED if symptoms do not improve. continue to her splint, follow up with orthopedic consult 1-2 days for repeat imaging. Return to ER if condition worsens. Is patient prescribed a controlled substance at d/c from ED?: No Referrals: Abhishek Martinez MD [Primary Care Provider] - 1-2 days Frankie Crow PAC [PHYSICIAN COVER STRIPPER] - 1-2 days
== END 2019-04-21 18:28 | disposition home or self-care (01) ==
LOC: EC 16:34
DX: S63.501A Unspecified sprain of right wrist, initial encounter (principal); M79.7 Fibromyalgia; F17.200 Nicotine dependence, unspecified, uncomplicated; Z87.39 Personal history of other diseases of the musculoskeletal system and connective tissue; Z85.3 Personal history of malignant neoplasm of breast; Z79.899 Other long term (current) drug therapy; Z88.5 Allergy status to narcotic agent; Z88.6 Allergy status to analgesic agent; W01.0XXA Fall on same level from slipping, tripping and stumbling without subsequent striking against object, initial encounter; Y92.89 Other specified places as the place of occurrence of the external cause
CPT/HCPCS: 29125; 99284

== ENCOUNTER → 2019-07-25 | Outpatient (CLI) | payer OTHER ==
--- NOTE | 2019-07-25 12:41 | XR ---
EXAMINATION TYPE: XR chest 2V DATE OF EXAM: 07/25/2019 COMPARISON: 06/16/2017 INDICATION: History of breast cancer TECHNIQUE: Frontal and lateral views of the chest are obtained. FINDINGS: The heart size is normal. The pulmonary vasculature is normal. The lungs are clear. Surgical clips are in the bilateral axilla. IMPRESSION: 1. No acute pulmonary process.
== END | disposition home or self-care (01) ==
LOC: RADXRMAIN 12:09
PROVIDERS: ATTEND Family Medicine
DX: R07.82 Intercostal pain (principal)
CPT/HCPCS: 71046

== ENCOUNTER → 2019-08-04 | Outpatient (CLI) | payer OTHER ==
--- NOTE | 2019-08-04 15:58 | XR ---
EXAMINATION TYPE: XR ribs LT DATE OF EXAM: 08/04/2019 COMPARISON: Chest x-ray dated 08/04/2019 HISTORY: Left-sided rib pain. Personal history of breast cancer and bilateral mastectomy. TECHNIQUE: 2 views of the left ribs were obtained FINDINGS: Surgical clips overlie the mediastinum and left axilla. Visualized portions of the lungs ar e clear. Heart is mildly enlarged. There is no acute fracture or dislocation of the left ribs. No hea led callused rib fracture deformity. No suspicious osseous lesion is seen. IMPRESSION: Unremarkable left rib radiographs. No acute fracture or dislocation of the left ribs.
== END | disposition home or self-care (01) ==
LOC: RADXRMAIN 11:00
PROVIDERS: ATTEND Family Medicine
DX: R07.82 Intercostal pain (principal)

== ENCOUNTER → 2019-09-26 | Outpatient (CLI) | payer OTHER ==
--- NOTE | 2019-09-26 15:55 | CT ---
EXAMINATION TYPE: CT chest wo con DATE OF EXAM: 09/26/2019 COMPARISON: Chest x-ray July 25, 2019 HISTORY: Left sided chest pain. CT DLP: 187.5 mGycm. Automated Exposure Control for Dose Reduction was Utilized. TECHNIQUE: CT scan of the thorax is performed without IV contrast. FINDINGS: LUNGS: Mild emphysematous change in both lungs. Mild alveolar edema. No suspicious focal consolidatio n. No suspicious nodules or masses. There is no pleural effusion or pneumothorax seen. The tracheobr onchial tree is patent. MEDIASTINUM: Lack of IV contrast is noted to limit evaluation for mediastinal and especially hilar ad enopathy. There are no definitive greater than 1 cm hilar or mediastinal lymph nodes. No cardiomega ly or pericardial effusion is seen. OTHER: Both breasts are surgically absent. IMPRESSION: Mild emphysematous change without suspicious focal infiltrate.
== END | disposition home or self-care (01) ==
LOC: RADCTMAIN 15:13
PROVIDERS: ATTEND Family Medicine
DX: R07.82 Intercostal pain (principal); C81.00 Nodular lymphocyte predominant Hodgkin lymphoma, unspecified site
CPT/HCPCS: 71250

== ENCOUNTER → 2020-01-17 | Outpatient (CLI) | payer OTHER ==
--- NOTE | 2020-01-17 13:32 | XR ---
EXAMINATION TYPE: XR knee complete LT DATE OF EXAM: 01/17/2020 COMPARISON: 04/01/2018 HISTORY: Left knee pain TECHNIQUE: Three-view left knee FINDINGS: Joint spaces are stable. Posterior superior patellar spur is present. No significant joint effusion is evident. No acute fractures or dislocations are evident. IMPRESSION: 1. No acute osseous abnormality left knee
--- NOTE | 2020-01-17 13:34 | XR ---
EXAMINATION TYPE: XR lumbar spine 2 or 3V DATE OF EXAM: 01/17/2020 COMPARISON: 01/16/2017 HISTORY: Back pain TECHNIQUE: Three-view lumbar spine FINDINGS: Very minimal grade 1 spondylolisthesis of L4 anterior and L5 is present. This was present p reviously. Evident. There 5 lumbar-type bodies. Pedicles are intact. Mild scoliosis present with convexity to the left. M ild degenerative disc change may be present L4-5. IMPRESSION: 1. Grade 1 spondylolisthesis of L4 anterior to L5. 2. Mild degenerative disc change L4-5. 3. No acute osseous abnormality.
== END | disposition home or self-care (01) ==
LOC: RADXRMAIN 13:06
PROVIDERS: ATTEND Family Medicine
DX: M43.16 Spondylolisthesis, lumbar region (principal); M47.896 Other spondylosis, lumbar region; M25.562 Pain in left knee
CPT/HCPCS: 72100

== ENCOUNTER → 2020-03-10 | Outpatient (CLI) | payer OTHER ==
--- NOTE | 2020-03-10 12:03 | MR ---
EXAMINATION TYPE: MR lumbar spine wo con DATE OF EXAM: 03/10/2020 11:47 AM COMPARISON: NONE HISTORY: Lower back pain into both legs x 4 years Multiplanar, MultiSpin echo imaging of the lumbar spine was performed. L1-L2: Normal disc appearance without desiccation. No herniation, protrusion or disc bulging. No ca nal stenosis is present. Foramina are patent bilaterally. L2-L3: Normal disc appearance without desiccation. No herniation, protrusion or disc bulging. No ca nal stenosis is present. Foramina are patent bilaterally. L3-L4: Moderate disc desiccation noted. Circumferential disc bulge greatest posteriorly with effaceme nt of the ventral thecal sac. No evidence for central stenosis or lateral recess stenosis. Facet join t arthropathy with mild left-sided foraminal encroachment. L4-L5: Moderate disc desiccation noted. Circumferential disc bulge greatest posteriorly with effaceme nt of the ventral thecal sac. No evidence for central stenosis or lateral recess stenosis. Facet join t arthropathy with bilateral foraminal encroachment. L5-S1: Moderate disc desiccation noted. Circumferential disc bulge greatest posteriorly with effaceme nt of the ventral thecal sac. No evidence for central stenosis or lateral recess stenosis. Facet join t arthropathy. Ventral spondylosis. Lumbar segments are intact. No paraspinal masses are identified. Conus medullaris has a normal appe arance. IMPRESSION: 1. Generative disc disease and disc bulging as outlined above.
--- NOTE | 2020-03-12 09:42 | MR ---
EXAMINATION TYPE: MR knee LT wo con DATE OF EXAM: 03/10/2020 COMPARISON: None HISTORY: Left Knee Pain, locking and swelling TECHNIQUE: Multiplanar, multisequence images of the knee is performed without IV contrast. FINDINGS: MEDIAL MENISCUS: Oblique tear posterior horn medial meniscus. Anterior horn is intact. LATERAL MENISCUS: Anterior and posterior horns are intact without tear. CRUCIATE LIGAMENTS: The anterior and posterior cruciate ligaments are intact and unremarkable. COLLATERAL LIGAMENTS: The medial collateral ligament and lateral collateral ligament complex are inta ct and unremarkable. EXTENSOR MECHANISM: Visualized quadriceps and patellar tendons are intact. EFFUSION: Small joint effusion noted. POPLITEAL CYST: No popliteal/esparza cyst. TRICOMPARTMENT SPACES: Mild degenerative narrowing medial tibiofemoral joint space. CARTILAGE: Intact BONE MARROW SIGNAL: No focal abnormal marrow signal is appreciated. OTHER: No additional significant abnormality is appreciated. IMPRESSION: 1. Oblique tear posterior horn medial meniscus.
== END | disposition home or self-care (01) ==
LOC: RADMRIMAIN 11:00
PROVIDERS: ATTEND Family Medicine
DX: M51.36 Other intervertebral disc degeneration, lumbar region (principal); M47.816 Spondylosis without myelopathy or radiculopathy, lumbar region; S83.242A Other tear of medial meniscus, current injury, left knee, initial encounter
CPT/HCPCS: 72148

== ENCOUNTER → 2020-04-11 | Outpatient (CLI) | payer OTHER ==
[2020-04-11 11:21] VITALS: BP 137/80; PULSE 60; RESP 16; TEMP 98.1
--- NOTE | 2020-04-11 11:53 | P.PAINCN ---
History of Present Illness - Reason for Consult Consult date: 04/11/20 - History of Present Illness This is 59 years old female with a chronic history, of severe mid back and upper back pain, started more than 2 years ago, she denies any initiating event, and she reported that the pain intensity is severe increases with any torso movement, radiated from the mid back towards the cervical spine, she denies any shortness of breath, she denies any radiation of the pain towards the lateral or anterior chest wall, patient had history of low back pain for this reason she had MRI of the lumbar spine, and it showed that, she had lumbar degenerative disc disease ,and lumbar facet arthropathy, but she reported that her low back pain maneged with her current pain medication ,and her main pain is in the mid back area, she is taking Tylenol No. 4 and Lyrica 200 mg 3 times a day ( prescribed by her primary care ) Past Medical History Past Medical History: Cancer, Fibromyalgia, Osteoarthritis (OA) Additional Past Medical History / Comment(s): breast cancer, heart murmur as child, varicose veins, arthritis in spine History of Any Multi-Drug Resistant Organisms: None Reported Past Surgical History: Breast Surgery Additional Past Surgical History / Comment(s): breast biopsy, bilateral mastecomy Past Anesthesia/Blood Transfusion Reactions: Motion Sickness Smoking Status: Current every day smoker - Past Family History Mother Family Medical History: Cancer Father Family Medical History: Myocardial Infarction ([place]) Medications and Allergies Home Medications Medication Instructions Recorded Confirmed Type Pregabalin [Lyrica] 200 mg PO TID 10/13/16 04/11/20 History Escitalopram [Lexapro] 10 mg PO DAILY 06/16/17 04/11/20 History Acetaminophen with Codeine 1 tab PO Q6H PRN 04/11/20 04/11/20 History [Tylenol w/Codeine #4 Tablet] tiZANidine [Zanaflex] 2 mg PO Q8H PRN 04/11/20 04/11/20 History Allergies Allergy/AdvReac Type Severity Reaction Status Date / Time tramadol Allergy Abdominal Verified 04/11/20 11:11 Pain ibuprofen [From Motrin] AdvReac Rash/Hives Verified 04/11/20 11:11 Physical Exam Vitals: Vital Signs Temp Pulse Resp BP Pulse Ox 04/11/20 11:13 98.1 F 60 16 137/80 96 Physical Examinations : -Constitutiona : Cooperative , not in acute distress . -HEENT : nech : supple , no Lymphadenopathy , normal thyroid size . : eyes : no ptosis , no icterus, no photophobia . : ENT : normal of hearing , normal oropharynx , no Thrush . - Respiratory : Chest clear to auscultations Bilaterally , no wheezing , no Rhonchi . - Cardiovascula : regular rate and rhythem , S1 , S2 , no S3 , no S4. - Gastrointestina : abdomen soft no tenderness , bowel sounds , no organomegally . - Genitourinary : Defferred . - neurologic : Cranial nerve II to XII intact , no focal neurological deffecit . -psychatric : alert , oriented X 3 , appropriate affect , intact judgment and insight . -Lymphatic : no Lymphadenopathy . - musculoskeltal : Cervical Spine motor stregnth in the deltoid and biceps, normal right side , normal Left side motor stregnth biceps and the wrist extensors normal right side ,normal left side . motor stregnth in the triceps muscle . normal Right side , normal Left side deep tendon reflexes normal at the biceps , normal at Brachioradialis , normal at triceps. Thoracic spine Positive facet loading test thoracic area T4 to T8 Trigger point identified in the thoracic paraspinal muscles . Lumber spine moter stegnth lower extremities ,thigh and legs 5/5 Right side , 5/5 Left side deep tendon reflexes : normal Knee Jerk , normal ankle Jerk lumber facet Loading Test = negative bilaterally. Range of motion of the lumbar spine Flexion 60 degrees, extension 30 degrees strait leg raising test = negative . Fabere test= negative bilaterally Results Comments: MRI of the lumbar spine= multilevel lumbar degenerative disc disease and multilevel lumbar facet arthropathy Assessment and Plan Plan: Assessment and plan=1-mid back pain secondary to thoracic spondylosis, 2-low back pain secondary to lumbar degenerative disc disease and lumbar spondylosis with facet arthropathy Patient reported that currently most of her pain in the mid back area, we'll order MRI of the thoracic spine , Patient could benefit from physical therapy evaluation and treatment, patient could benefit from Zanaflex 2 mg 3 times a day Patient will follow up in the pain clinic in 6-8 weeks by that time she will be finished with her physical therapy and will have the MRI report of the thoracic spine, and will discuss with the patient to interventional pain management. if it's indicated. Patient will continue to use her current medication ,Tylenol #4 ,and Lyrica 200 mg as prescribed by her primary care Time with Patient: Greater than 30 PQRS Measure Charge Sheet Measure #130: Documentation of Current Meds in Medical Chart: Patient's medications documented in chart Measure #226: Tobacco Use: Screen & Cessation Intervention: Pt screened for tobacco use AND intervention given Measure #111: Pneumonia Vaccination: Pneumococcal vaccine NOT administered or previously given Measure #47: Advance Care Plan: Advance care planning discussed & documented, pt chose/unable to give Measure #412: Opioid Treatment Agreement: No documentation of signed opioid treatment agreement Measure #408: Opioid Therapy Follow-up Evaluation: Patient had NO f/u eval minimum every 3 months during opioid therapy Measure #317: Preventitive Care & Scrn High Bld Press & F/U: Normal blood pressure, f/u not required Measure #128: Body Mass Index (BMI) Screening & Follow-up: BMI documented within normal parameters Measure #131: Pain Assessment & Follow-up: Pain positive & plan documented, Follow-up scheduled Measure #431: Unhealthy Alcohol Use Preventative Care & Scrn: Patient not identified as an unhealthy alcohol user PQRS Narrative: Smoking Status Current every day smoker Blood Pressure 137/80 Pain Intensity [Back] 6 Scale Used Numeric (1 - 10) Hx Alcohol Use (MH) No Home Medications: Ambulatory Orders Pregabalin [Lyrica] 200 mg PO TID 10/13/16 Escitalopram [Lexapro] 10 mg PO DAILY 06/16/17 Acetaminophen with Codeine [Tylenol w/Codeine #4 Tablet] 1 tab PO Q6H PRN 04/11/20 tiZANidine [Zanaflex] 2 mg PO Q8H PRN 04/11/20
== END | disposition home or self-care (01) ==
LOC: PNWHC3 10:49
PROVIDERS: ATTEND Specialist
DX: G89.29 Other chronic pain (principal); M51.36 Other intervertebral disc degeneration, lumbar region; M47.816 Spondylosis without myelopathy or radiculopathy, lumbar region; M47.814 Spondylosis without myelopathy or radiculopathy, thoracic region; F17.200 Nicotine dependence, unspecified, uncomplicated; Z79.899 Other long term (current) drug therapy; Z88.6 Allergy status to analgesic agent
CPT/HCPCS: 99211

== ENCOUNTER → 2020-04-23 | Outpatient (CLI) | payer OTHER ==
[2020-04-23 15:00] LABS: HCT 45.8 % (34.0-46.0); HGB 14.6 gm/dL (11.4-16.0); MCH 29.9 pg (25.0-35.0); MCV 93.6 fL (80.0-100.0); Mean Platelet Volume 8.5; Platelet Count 197 k/uL (150-450); RDW 14.3 % (11.5-15.5); WBC 5.8 k/uL (3.8-10.6)
[2020-04-23 17:54] LABS: Lymphocytes # (M) 1.68 k/uL (1.0-4.8); Monocytes # (M) 0.29 k/uL (0-1.0); Neutrophils # (M) 3.83 k/uL (1.3-7.7); Neutrophils % (M) 66 %; Nucleated Red Blood Cells 0 /100 WBC (0-0); Total Cells Counted 100
[2020-04-23 19:39] LABS: African American GFR (CKD) 93.5 (60.0-200.0); Albumin 4.2 g/dL (3.80-4.90); Albumin/Globulin Ratio 2.21 (1.60-3.17); Anion Gap 5.7 mmol/L (4.00-12.00); BUN/Creat Ratio 12.5 Ratio (12.00-20.00); Calcium 9.6 mg/dL (8.7-10.3); Carbon Dioxide 27.3 mmol/L (21.6-31.8); Globulin 1.9 g/dL (1.6-3.3); Magnesium 1.9 mg/dL (1.5-2.4); Non-African American GFR(CKD) 80.7 (60.0-200.0); Potassium 4.3 mmol/L (3.5-5.5); Total Bilirubin 0.5 mg/dL (0.3-1.2); Total Protein 6.1 g/dL (6.2-8.2)
[2020-04-24 15:09] LABS: T4, Free (Free Thyroxine) 1.1 ng/dL (0.80-1.80)
== END | disposition home or self-care (01) ==
LOC: LABWHC1 11:12
PROVIDERS: ATTEND Family Medicine
DX: Z01.818 Encounter for other preprocedural examination (principal); Z79.891 Long term (current) use of opiate analgesic
CPT/HCPCS: 36415; 80053; 83735; 84439; 84443; 85025

== ENCOUNTER 2020-05-04 06:21 | Day surgery (SDC) | payer OTHER ==
[2020-05-02 08:38] VITALS: BMI 24.6
--- NOTE | 2020-05-03 09:07 | HP ---
HISTORY AND PHYSICAL CHIEF COMPLAINT: Left knee pain. HISTORY OF PRESENT ILLNESS: The patient is a 59-year-old female who presents with a 5 to 6-month history of progressive left knee pain. She notes swelling and giving way. She is having a difficult time getting up from a seated position. She has tried medications along with rest and other modalities without much relief. She notes the pain significantly limits her. PAST MEDICAL HISTORY: Significant for breast cancer and depression. PAST SURGICAL HISTORY: Significant for bilateral mastectomy. CURRENT MEDICATIONS: Acetaminophen, Lyrica. She denies drug allergies. FAMILY HISTORY: Significant for heart disease and cancer. SOCIAL HISTORY: Significant for 1 pack per day tobacco use. 16 POINT REVIEW OF SYSTEMS: Otherwise reviewed and is noncontributory. PHYSICAL EXAMINATION: On examination, the patient is approximately 5 foot 5, 148 pounds of mesomorphic habitus. HEENT: Exam is nonfocal. Neck is supple. She has painless passive motion of her left hip. Straight leg raise is negative. Active motion left knee -10 to 130 degrees of flexion. She has a moderate effusion. She is tender about the medial and lateral joint line. Collaterals are stable, Aram is negative, Dee's elicits medial pain. She has genu varum alignment. Her distal neurovascular exam appears intact in the left lower extremity. MRI report left knee 03/10/2020 shows a posteromedial meniscal tear along with degenerative changes of the medial compartment. IMPRESSION: 1. Left knee internal derangement with symptomatic medial meniscal tear. 2. Left knee moderate medial compartment osteoarthrosis. 3. History of breast cancer. RECOMMENDATIONS: I talked to the patient at length regarding her condition along with treatment options. At this point, she is having significant pain and mechanical symptoms that continue to limit her despite conservative measures. After thorough discussion, she opts to proceed with surgery. We will plan to proceed with arthroscopic evaluation with possible partial medial meniscectomy. Risks and benefits were discussed at length in layman's terms. We will likely perform that as an outpatient procedure. MMODL / IJN: [id number] /
[~2020-05-04 06:21] MED LIST changes: -ALPRAZolam 0.5 MG TAB PO PRN; -HEPARIN SODIUM,PORCINE 5,000 UNIT/ML 1 ML VIAL SQ ONE; +HYDROmorphone 0.5 MG/0.5 ML SYRINGE IVP PRN; +LIDOCAINE 1% (10MG/ML) FOR IV START INTRADERMA PRN; -LIDOCAINE 1% 20 ML VIAL (10MG/ML) FOR IV START INTRADERMA PRN; +MIDAZOLAM 2 MG/2 ML VIAL IV PRN; +ONDANSETRON 4 MG/2 ML VIAL IVP ONE; -Pre Op ABX Message 1 EACH MISC MISCELLANE ONE; -SCOPOLAMINE 1.5MG/72HR PATCH TRANSDERM ONE; +fentaNYL (PF) 50 MCG/ML 2 ML AMP IVP PRN
[2020-05-04] MEDS ORDERED: SCOPOLAMINE 1.5MG/72HR PATCH TRANSDERM ONE (07:07)
[2020-05-04] MEDS ORDERED: fentaNYL (PF) 50 MCG/ML 2 ML AMP IV ONE (07:15)
[2020-05-04] MEDS ORDERED: MIDAZOLAM 2 MG/2 ML VIAL ONE (07:21)
[2020-05-04] MEDS ORDERED: fentaNYL (PF) 50 MCG/ML 2 ML AMP ONE (07:21)
[2020-05-04] MEDS ORDERED: LIDOCAINE 1% INJ 10MG/ML (20 ML MDV) ONE (07:21)
[2020-05-04] MEDS ORDERED: PROPOFOL 10 MG/ML 20 ML VIAL IV ONE (07:21)
--- NOTE | 2020-05-04 08:08 | P.OP ---
Date of Procedure: 05/04/20 Preoperative Diagnosis: Left knee internal derangement Postoperative Diagnosis: Left knee posterior medial meniscal tear/grade 3 chondral injury distal medial femoral condyle Procedure(s) Performed: Left knee arthroscopic partial medial meniscectomy/medial femoral chondrectomy/microfracture medial femoral condyle Anesthesia: WILSON Surgeon: Low Santana Estimated Blood Loss (ml): 10 Pathology: none sent Condition: stable Disposition: PACU Indications for Procedure: The patient's a 59-year-old female who presents with progressive left knee pain and mechanical symptoms despite conservative measures. A discussion of the risks and benefits of operative intervention versus continued conservative measures was made with patient. She opted to proceed with surgery. Operative risks to include infection, neurovascular injury, development of blood clots, possible incomplete resolution of symptoms, possible worsening symptoms and need for subsequent procedures was discussed. Informed consent was obtained. Operative Findings: As below Description of Procedure: The patient was brought to the operating room, and after induction of general anesthesia examined the left knee. Collaterals were stable, Aram was negat titi, and posterior drawer was negative. The left lower extremity was prepped and draped in a normal fashion. A superior lateral portal was made through a 3 mm skin incision superior and lateral to the patella. This was used for outflow. A lateral portal was made through a 5 mm vertical skin incision lateral to the patella tendon above the joint line. Diagnostic arthroscopy was performed. On inspection of the medial compartment, a complex tear involving the posterior horn of the medial meniscus in the white-red junction was noted. This was debrided back to stable base with straight baskets and a motorized shaver. The remaining medial meniscus was stable and intact. A corresponding grade 3 chondral injury was noted involving the distal lateral portion of the medial femoral condyle. There was a loose chondral fragment debrided back to stable base with a motorized shaver. Microfracture was performed utilizing a power pick reaching the subchondral surface down to the bone marrow elements. On inspection of the notch, the anterior cruciate ligament appeared to be intact. On inspection of the lateral compartment, no significant meniscal or cartilage pathology was noted. On inspection of the patellofemoral articulation there were diffuse grade 2 chondral changes however no loose chondral fragments. The gutters were clear of debris. The knee was then thoroughly irrigated. The portals were closed with Steri-Strips. A sterile dressing was applied in addition to a compression stocking. The patient was awoken from general anesthesia and transferred to recovery room in good condition. Blood loss was estimated at 10 mL. No complications were incurred.
[2020-05-04 08:18] VITALS: TEMP 97.3
[2020-05-04 08:23] VITALS: RESP 16
[2020-05-04] MEDS ORDERED: HYDROcodone/APAP 5-325MG 1 EACH TAB ONE (08:53)
[2020-05-04] MEDS ORDERED: HYDROcodone/APAP 5-325MG 1 EACH TAB PO ONE (08:54)
[2020-05-04 09:18] VITALS: BP 137/70; PULSE 71
== END 2020-05-04 09:38 | disposition home or self-care (01) ==
LOC: OR 06:21
PROVIDERS: ATTEND Orthopaedic Surgery
DX: M23.222 Derangement of posterior horn of medial meniscus due to old tear or injury, left knee (principal); M17.12 Unilateral primary osteoarthritis, left knee; F17.210 Nicotine dependence, cigarettes, uncomplicated; F32.9 Major depressive disorder, single episode, unspecified; Z88.5 Allergy status to narcotic agent; Z79.891 Long term (current) use of opiate analgesic; Z79.899 Other long term (current) drug therapy; Z85.3 Personal history of malignant neoplasm of breast; Z90.13 Acquired absence of bilateral breasts and nipples; Z82.49 Family history of ischemic heart disease and other diseases of the circulatory system; Z80.9 Family history of malignant neoplasm, unspecified
CPT/HCPCS: 29881; 29879; J2250; J1100; J2405; J0690; J2001; J3010; J2704

== ENCOUNTER → 2020-09-12 | Outpatient (CLI) | payer OTHER ==
--- NOTE | 2020-09-12 11:53 | XR ---
EXAMINATION TYPE: XR chest 2V DATE OF EXAM: 09/12/2020 COMPARISON: 07/25/2019 HISTORY: 59-year-old female are 07.89 TECHNIQUE: Frontal and lateral views FINDINGS: The cardiomediastinal silhouette, aorta, and pulmonary vasculature are within normal limits. Lungs an d pleural spaces are clear. Some surgical clips noted in the axilla. IMPRESSION: No acute cardiopulmonary process.
== END | disposition home or self-care (01) ==
LOC: RADXRMAIN 11:15
PROVIDERS: ATTEND Family Medicine
DX: R07.89 Other chest pain (principal)
CPT/HCPCS: 71046

== ENCOUNTER → 2020-11-08 | Outpatient (CLI) | payer OTHER ==
--- NOTE | 2020-11-08 12:12 | XR ---
EXAM TYPE: LUMBAR SPINE X RAY SERIES COMPARISON: NONE HISTORY: Pain TECHNIQUE: 4 views are submitted. FINDINGS: Alignment is anatomic. The pedicles are intact. The transverse processes are intact. There is hype rtrophic and degenerative changes most marked involving the lower lumbar spine. Spina bifida occulta lumbosacral junction. IMPRESSION: 1. Multilevel degenerative disc disease and facet arthropathy most marked at L4-5 and L5-S1.
== END | disposition home or self-care (01) ==
LOC: RADXRMAIN 11:24
PROVIDERS: ATTEND Family Medicine
DX: M51.36 Other intervertebral disc degeneration, lumbar region (principal); M47.817 Spondylosis without myelopathy or radiculopathy, lumbosacral region
CPT/HCPCS: 72110

== ENCOUNTER → 2021-03-12 | Outpatient (CLI) | payer OTHER ==
[2021-03-12 18:52] LABS: Basophils # (A) 0.04 X 10*3/uL (0.00-0.10); Basophils % (A) 0.6 %; Eosinophils # (A) 0.06 X 10*3/uL (0.04-0.35); Eosinophils % (A) 0.8 %; HCT 45.3 % (37.2-46.3); HGB 14.4 g/dL (12.0-15.0); Lymphocytes # (A) 2.03 X 10*3/uL (0.90-5.00); Lymphocytes % (A) 28.8 %; MCH 29.4 pg (27.0-32.0); MCHC 31.8 g/dL (32.0-37.0); MCV 92.6 fL (80.0-97.0); Mean Platelet Volume 11.2 fL (9.5-12.2); Monocytes # (A) 0.61 X 10*3/uL (0.20-1.00); Monocytes % (A) 8.6 %; Neutrophils % (A) 60.9 %; Platelet Count 234 X 10*3/uL (140-440); RBC 4.89 X 10*6/uL (4.10-5.20); RDW 14.7 % (11.5-14.5); WBC 7.06 X 10*3/uL (4.50-10.00)
[2021-03-12 21:13] LABS: African American GFR (CKD) 114.8 (60.0-200.0); Albumin 4.4 g/dL (3.80-4.90); Anion Gap 5.3 mmol/L (4.00-12.00); BUN/Creat Ratio 16.67 Ratio (12.00-20.00); Calcium 9.1 mg/dL (8.7-10.3); Carbon Dioxide 27.7 mmol/L (21.6-31.8); Globulin 2.2 g/dL (1.6-3.3); Non-African American GFR(CKD) 99.1 (60.0-200.0); Potassium 4.3 mmol/L (3.5-5.5); Total Bilirubin 0.5 mg/dL (0.2-1.2); Total Protein 6.6 g/dL (6.2-8.2)
== END | disposition home or self-care (01) ==
LOC: LABWHC1 10:47
PROVIDERS: ATTEND Family Medicine
DX: R55 Syncope and collapse (principal)
CPT/HCPCS: 36415; 80053; 85025; 93005

== ENCOUNTER 2021-03-21 14:50 | Emergency (ER) | payer OTHER ==
[2021-03-21 14:53] VITALS: BP 148/88; PULSE 89; RESP 18; TEMP 97.7
[2021-03-21] MEDS ORDERED: HYDROcodone/APAP 10-325MG 1 EACH TAB PO ONE (15:26)
--- NOTE | 2021-03-21 15:27 | ED ---
Extremity Problem HPI - General Chief complaint: Extremity Problem,Nontraumatic Stated complaint: L Knee Swelling Time Seen by Provider: 03/21/21 14:55 Source: patient Mode of arrival: ambulatory Limitations: physical limitation - History of Present Illness Initial comments: 60 year old female with past medical history fibromyalgia, osteoarthritis who p resents emergency room with reported left knee pain. She reports that she has had pain for one week without inciting trauma. Her ports that she feels a crunching and popping sensation every time she walks. She has been ambulatory however it is painful. She admits to associated swelling. No redness or warmth. No fevers. She had a arthroscopic surgery by Dr. De Anda. States that she called the office however does not have an appointment. She takes Pattison at home for pain control. No history of DVT or PE. No calf pain or swelling. No recent travel or hormone use. No alleviating, precipitating or modifying factors - Related Data Home Medications Medication Instructions Recorded Confirmed Pregabalin [Lyrica] 200 mg PO TID 10/13/16 05/15/20 Escitalopram [Lexapro] 10 mg PO DAILY 06/16/17 05/15/20 Acetaminophen with Codeine 1 tab PO Q6H PRN 04/11/20 05/15/20 [Tylenol w/Codeine #4 Tablet] Previous Rx's Medication Instructions Recorded Hydrocodone/Acetaminophen [Pattison 1 tab PO Q4-6H PRN 5 Days #21 tab 05/04/20 5-325] HYDROcodone/APAP 10-325MG [Pattison 1 tab PO Q6H PRN #12 tab 03/21/21 10-325] Allergies Allergy/AdvReac Type Severity Reaction Status Date / Time tramadol Allergy Abdominal Verified 03/21/21 14:52 Pain ibuprofen [From Motrin] AdvReac Rash/Hives Verified 03/21/21 14:52 Review of Systems ROS Statement: Those systems with pertinent positive or pertinent negative responses have been documented in the HPI. ROS Other: All systems not noted in ROS Statement are negative. 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, varicose veins, arthritis in spine, scratch markes on arm, History of Any Multi-Drug Resistant Organisms: None Reported Past Surgical History: Breast Surgery Additional Past Surgical History / Comment(s): breast biopsy, bilateral mastecomy Past Anesthesia/Blood Transfusion Reactions: Motion Sickness Past Psychological History: No Psychological Hx Reported Smoking Status: Current every day smoker Past Alcohol Use History: None Reported Past Drug Use History: None Reported - Past Family History Mother Family Medical History: Cancer Father Family Medical History: Myocardial Infarction ([place]) General Exam Limitations: no limitations General appearance: alert, in no apparent distress Extremities exam: Present: tenderness (anterior left knee. Mild prepatellar swelling. No joint effusion. Normal ROM. Intact sensation over medial, lateral and dorsal lower extremity. 2+ DP and PT pulses) Course Vital Signs 03/21/21 14:52 Temperature 97.7 F Pulse Rate 89 Respiratory 18 Rate Blood Pressure 148/88 O2 Sat by Pulse 96 Oximetry Medical Decision Making - Medical Decision Making Upon arrival patient is placed in room 11. A thorough history and physical exam is performed. X-rays performed which demonstrates a joint effusion. Patient is given a Pattison for pain control. I did discuss diagnosis, differential and treatment options. No reported fevers. No warmth or redness. Patient will be discharged home. She is placed in a knee immobilizer. She has crutches at home. She is to call and make an appointment with Dr. De Anda. Return to the emergency department for any new or worsening symptoms. Patient was discharged in stable condition Disposition Clinical Impression: Left knee pain, Internal derangement of knee, Joint effusion of knee Disposition: HOME SELF-CARE Condition: Stable Instructions (If sedation given, give patient instructions): Knee Pain (ED) Additional Instructions: Please follow-up with Dr. De Anda in 1 week. You may need an MRI or arthroscopic procedure for your knee pain. Return to the emergency room for any new or worsening symptoms Prescriptions: HYDROcodone/APAP 10-325MG [Pattison 10-325] 1 tab PO Q6H PRN #12 tab PRN Reason: pain Is patient prescribed a controlled substance at d/c from ED?: Yes When asked, does pt state using other controlled substances?: Yes If prescribed controlled substance>3 days was MAPS reviewed?: Prescribed <3 Days If opioid is for acute pain is fill amount 7 days or less?: Yes If Rx opioid, was Start Talking consent form obtained?: Yes Referrals: Abhishek Martinez MD [Primary Care Provider] - 1-2 days Low Santana MD [STAFF PHYSICIAN] - 1-2 days Time of Disposition: 17:31
--- NOTE | 2021-03-21 16:37 | XR ---
PROCEDURE: XR knee complete LT - 3V DATE AND TIME: 03/21/2021 4:32 PM CLINICAL INDICATION: PHH; pain TECHNIQUE: Department protocol COMPARISON: 01/17/2020 FINDINGS: There is no fracture or malalignment. The soft tissues are remarkable for fullness in the s uprapatellar bursa consistent with moderate joint effusion. IMPRESSION: Joint effusion.
== END 2021-03-21 18:02 | disposition home or self-care (01) ==
LOC: EC 14:50
DX: M23.92 Unspecified internal derangement of left knee (principal); M25.462 Effusion, left knee; M19.90 Unspecified osteoarthritis, unspecified site; M79.7 Fibromyalgia; F17.200 Nicotine dependence, unspecified, uncomplicated; Z79.891 Long term (current) use of opiate analgesic; Z79.899 Other long term (current) drug therapy; Z88.5 Allergy status to narcotic agent; Z88.6 Allergy status to analgesic agent; Z88.8 Allergy status to other drugs, medicaments and biological substances; Z85.3 Personal history of malignant neoplasm of breast; Z82.49 Family history of ischemic heart disease and other diseases of the circulatory system
CPT/HCPCS: 73562; 99283; L1830

== ENCOUNTER → 2021-03-22 | Outpatient (CLI) | payer OTHER ==
--- NOTE | 2021-03-22 15:26 | US ---
EXAMINATION TYPE: US carotid duplex BILAT DATE OF EXAM: 03/22/2021 COMPARISON: NONE CLINICAL HISTORY: R55 SYNCOPE. EXAM MEASUREMENTS: RIGHT: Peak Systolic Velocity (PSV) cm/sec ----- Right CCA: 107.0 ----- Right ICA: 107.2 ----- Right ECA: 108.4 ICA/CCA ratio: 1.0 RIGHT: End Diastole cm/sec ----- Right CCA: 35.7 ----- Right ICA: 46.4 ----- Right ECA: 16.0 LEFT: Peak Systolic Velocity (PSV) cm/sec ----- Left CCA: 87.5 ----- Left ICA: 101.3 ----- Left ECA: 78.2 ICA/CCA ratio: 1.2 LEFT: End Diastole cm/sec ----- Left CCA: 26.7 ----- Left ICA: 43.5 ----- Left ECA: 78.2 VERTEBRALS (direction of flow): Right Vertebral: Antegrade Left Vertebral: Antegrade Rhythm: Normal No significant stenosis. IMPRESSION: No hemodynamically significant stenosis is seen in the bilateral carotid arteries. Criteria for Assigning % of Stenosis / Diameter reduction (Estimation based on the indirect measurements of the internal carotid artery velocities (ICA PSV). 1. Normal (no stenosis)=ICA PSV < 125 cm/s: ratio < 2.0: ICA EDV<40 cm/s. 2. Less than 50% stenosis=ICA PSV < 125 cm/s: ratio < 2.0: ICA EDV<40 cm/s. 3. 50 to 69% stenosis=ICA PSV of 125 to 230 cm/s: ration 2.0 ? 4.0: ICA EDV 40-100 cm/s. 4. Greater than 70% stenosis to near occlusion= ICA PSV > 230 cm/s: ratio > 4.0: ICA EDV > 100 cm/s. 5. Near occlusion= ICA PSV velocities may be low or undetectable: variable ratio and ICA EDV. 6. Total occlusion=unable to detect flow.
== END | disposition home or self-care (01) ==
LOC: RADUSWWP 14:08
PROVIDERS: ATTEND Family Medicine
DX: R55 Syncope and collapse (principal)
CPT/HCPCS: 93880

== ENCOUNTER → 2021-03-26 | Outpatient (CLI) | payer OTHER ==
--- NOTE | 2021-03-27 10:27 | ECHOF ---
Referral Reason:R55 Syncope and collapse MEASUREMENTS -------- HEIGHT: 165.1 cm WEIGHT: 68.5 kg BP: 136/73 RVIDd: 3.1 cm (< 3.3) IVSd: 0.7 cm (0.6 - 1.1) LVIDd: 4.7 cm (3.9 - 5.3) LVPWd: 0.8 cm (0.6 - 1.1) IVSs: 1.2 cm LVIDs: 3.2 cm LVPWs: 1.3 cm LA Diam: 2.9 cm (2.7 - 3.8) LAESV Index (A-L): 26.98 ml/m Ao Diam: 3.0 cm (2.0 - 3.7) AV Cusp: 1.9 cm (1.5 - 2.6) MV EXCURSION: 24.534 mm (> 18.000) MV EF SLOPE: 150 mm/s (70 - 150) EPSS: 0.4 cm MV E Rocky: 0.79 m/s MV DecT: 245 ms MV A Rocky: 0.73 m/s MV E/A Ratio: 1.09 FINDINGS -------- Sinus rhythm. This was a technically good study. The left ventricular size is normal. Left ventricular wall thickness is normal. Overall left vent ricular systolic function is normal with, an EF between 60 - 65 %. The right ventricle is normal in size. Normal LA size by volume 22+/-6 ml/m2. The right atrium is normal in size. Interatrial and interventricular septum intact. The aortic valve is trileaflet, and appears structurally normal. No aortic stenosis or regurgitation. The mitral valve is normal. The tricuspid valve appears structurally normal. The pulmonic valve is normal. The aortic root size is normal. Normal inferior vena cava with normal inspiratory collapse consistent with estimated right atrial pre ssure of 5 mmHg. There is no pericardial effusion. CONCLUSIONS -------- 1. The left ventricular size is normal. 2. Left ventricular wall thickness is normal. 3. Overall left ventricular systolic function is normal with, an EF between 60 - 65 %. 4. The aortic valve is trileaflet, and appears structurally normal. No aortic stenosis or regurgitati on. 5. There is no pericardial effusion. BELLOWS CHARGER ASSEMBLER: Ashley Stanley RDCS
== END | disposition home or self-care (01) ==
LOC: RADECHMAIN 15:47
PROVIDERS: ATTEND Family Medicine
DX: R55 Syncope and collapse (principal)
CPT/HCPCS: 93306

== ENCOUNTER 2021-04-20 14:09 | Emergency (ER) | payer OTHER ==
[2021-04-20 14:12] VITALS: BP 164/78; PULSE 81; RESP 16; TEMP 98.1
--- NOTE | 2021-04-20 15:03 | ED ---
Extremity Problem HPI - General Chief complaint: Extremity Problem,Nontraumatic Stated complaint: Recheck/Lt Leg Swelling/Pain Time Seen by Provider: 04/20/21 14:16 Source: patient Mode of arrival: ambulatory Limitations: no limitations - History of Present Illness Initial comments: 60-year-old female presenting to the emergency department with the chief complaint of left knee pain. Patient reports she went to see Dr. De Anda at his office who drained her left knee effusion. Patient reports he also injected cortisone. States ever the procedure was done yesterday, she has developed increased pain in the left knee that seems to be exacerbated with flexion and alleviated with extension. States she's had previous surgery for a ligamentous injury about one year ago. She denies any paresthesias or weakness to the leg. Denies any overlying erythema but does report mild swelling. Reports taking [place] for pain with no significant improvement in symptoms. - Related Data Home Medications Medication Instructions Recorded Confirmed Pregabalin [Lyrica] 200 mg PO TID 10/13/16 05/15/20 Escitalopram [Lexapro] 10 mg PO DAILY 06/16/17 05/15/20 Acetaminophen with Codeine 1 tab PO Q6H PRN 04/11/20 05/15/20 [Tylenol w/Codeine #4 Tablet] Previous Rx's Medication Instructions Recorded Hydrocodone/Acetaminophen [[place] 1 tab PO Q4-6H PRN 5 Days #21 tab 05/04/20 5-325] HYDROcodone/APAP 10-325MG [[place] 1 tab PO Q6H PRN #12 tab 03/21/21 10-325] Allergies Allergy/AdvReac Type Severity Reaction Status Date / Time tramadol Allergy Abdominal Verified 04/20/21 14:22 Pain ibuprofen [From Motrin] AdvReac Rash/Hives Verified 04/20/21 14:22 Review of Systems ROS Statement: Those systems with pertinent positive or pertinent negative responses have been documented in the HPI. ROS Other: All systems not noted in ROS Statement are negative. 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, varicose veins, arthritis in spine, scratch markes on arm, History of Any Multi-Drug Resistant Organisms: None Reported Past Surgical History: Breast Surgery Additional Past Surgical History / Comment(s): breast biopsy, bilateral mastecomy Past Anesthesia/Blood Transfusion Reactions: Motion Sickness Past Psychological History: No Psychological Hx Reported Smoking Status: Current every day smoker Past Alcohol Use History: None Reported Past Drug Use History: None Reported - Past Family History Mother Family Medical History: Cancer Father Family Medical History: Myocardial Infarction ([place]) General Exam Limitations: no limitations General appearance: alert, in no apparent distress Head exam: Present: atraumatic, normocephalic, normal inspection Eye exam: Present: normal appearance, PERRL, EOMI Pupils: Present: normal accommodation ENT exam: Present: normal exam, normal oropharynx, mucous membranes moist Neck exam: Present: normal inspection, full ROM. Absent: tenderness Respiratory exam: Present: normal lung sounds bilaterally. Absent: respiratory distress, wheezes, rales, rhonchi, stridor, chest wall tenderness, accessory muscle use Cardiovascular Exam: Present: regular rate, normal rhythm, normal heart sounds. Absent: systolic murmur, diastolic murmur GI/Abdominal exam: Present: soft. Absent: distended, tenderness, guarding, rebound Extremities exam: Present: normal inspection, full ROM, normal capillary refill. Absent: tenderness, pedal edema, joint swelling Back exam: Present: normal inspection, full ROM. Absent: tenderness, CVA tenderness (R), CVA tenderness (L), muscle spasm, paraspinal tenderness, vertebral tenderness Neurological exam: Present: alert, oriented X3 Psychiatric exam: Present: normal affect, normal mood Skin exam: Present: warm, dry, intact, normal color Course Vital Signs 04/20/21 14:10 Temperature 98.1 F Pulse Rate 81 Respiratory 16 Rate Blood Pressure 164/78 O2 Sat by Pulse 97 Oximetry Medical Decision Making - Medical Decision Making 60-year-old female presenting to the emergency department with a chief complaint of left knee pain. On Physical examination, mild swelling with no signs of infection. She has limited range of motion with flexion. Still able to ambulate. Patient was given Tylenol 3 for pain. X-ray shows no acute findings aside for mild soft tissue swelling. Patient will follow-up with civil design specialist again. Return parameters were thoroughly discussed the patient is an ascending agreeable. Disposition Clinical Impression: Left knee pain Disposition: HOME SELF-CARE Condition: Stable Instructions (If sedation given, give patient instructions): Swollen Knee Joint (ED) Additional Instructions: Follow-up with the civil design specialist. Return to emergency department if symptoms worsen. Is patient prescribed a controlled substance at d/c from ED?: No Referrals: Abhishek Martinez MD [Primary Care Provider] - 1-2 days Time of Disposition: 15:35
--- NOTE | 2021-04-20 15:10 | XR ---
EXAMINATION TYPE: XR knee complete LT DATE OF EXAM: 04/20/2021 CLINICAL HISTORY: pain TECHNIQUE: Three views of the left knee are obtained. COMPARISON: 03/21/2021 FINDINGS: There is no acute fracture/dislocation. The tri-compartment joint spaces appear mildly na rrowed. Small but improved suprapatellar joint effusion noted. Prepatellar soft tissue swelling. IMPRESSION: There is no acute fracture or dislocation ICD 10 NO FRACTURE, INITIAL EVALUATION
[2021-04-20] MEDS ORDERED: ACET/COD 300 MG/30 MG STARTER PACK 6 TAB BTL PO STA (15:35)
== END 2021-04-20 15:58 | disposition home or self-care (01) ==
LOC: EC 14:09
DX: M25.562 Pain in left knee (principal); M79.89 Other specified soft tissue disorders; M79.7 Fibromyalgia; M19.90 Unspecified osteoarthritis, unspecified site; F17.200 Nicotine dependence, unspecified, uncomplicated; Z85.3 Personal history of malignant neoplasm of breast; Z88.6 Allergy status to analgesic agent; Z88.5 Allergy status to narcotic agent; Z88.8 Allergy status to other drugs, medicaments and biological substances
CPT/HCPCS: 99283

== ENCOUNTER 2021-05-15 16:46 | Emergency (ER) | payer OTHER ==
[2021-05-15 16:58] VITALS: BP 113/67; PULSE 60; RESP 18; TEMP 98.2
[2021-05-15] MEDS ORDERED: ORPHENADRINE 30 MG/ML 2 ML VIAL IM STA (17:24)
[2021-05-15] MEDS ORDERED: HYDROcodone/APAP 5-325MG 1 EACH TAB PO STA (17:25)
--- NOTE | 2021-05-15 17:28 | ED ---
General Adult HPI - General Chief complaint: Extremity Injury, Lower Stated complaint: hip pain Time Seen by Provider: 05/15/21 17:00 Source: patient, family, RN notes reviewed, old records reviewed Mode of arrival: wheelchair Limitations: no limitations - History of Present Illness Initial comments: 60-year-old well-appearing white female presents to the emergency room with complaints of right hip pain for one week. Patient states that she was walking across the street when the pain was sharp and shooting down her right leg. She states that she did not have any trauma to the area. She's had no relief with ice. She states that she is unable to take ibuprofen as she is ALLERGIC. She states the pain is 10 out of 10. It hurts to walk. She currently has ice in place. She denies any bowel or bladder incontinence. She does have a history of breast cancer and is cancer free for the past 6 years. She had an MRI of her lumbar sacral spine showing degenerative disc disease in February 2020. -: week(s) (1) Location: right (Hip), lower extremity Radiation: extremity Severity scale (1-10): 10 Quality: other (Shooting) Consistency: constant Improves with: none Worsens with: movement Associated Symptoms: denies other symptoms Treatments Prior to Arrival: none - Related Data Home Medications Medication Instructions Recorded Confirmed Pregabalin [Lyrica] 200 mg PO TID 10/13/16 05/15/20 Escitalopram [Lexapro] 10 mg PO DAILY 06/16/17 05/15/20 Acetaminophen with Codeine 1 tab PO Q6H PRN 04/11/20 05/15/20 [Tylenol w/Codeine #4 Tablet] Previous Rx's Medication Instructions Recorded Hydrocodone/Acetaminophen [[place] 1 tab PO Q4-6H PRN 5 Days #21 tab 05/04/20 5-325] HYDROcodone/APAP 10-325MG [[place] 1 tab PO Q6H PRN #12 tab 03/21/21 10-325] Lidocaine [Lidoderm 5% Patch] 1 patch TRANSDERM DAILY 12 Days 05/15/21 #12 patch predniSONE 40 mg PO DAILY #5 tab 05/15/21 Allergies Allergy/AdvReac Type Severity Reaction Status Date / Time tramadol Allergy Abdominal Verified 05/15/21 16:55 Pain ibuprofen [From Motrin] AdvReac Rash/Hives Verified 05/15/21 16:55 Review of Systems ROS Statement: Those systems with pertinent positive or pertinent negative responses have been documented in the HPI. ROS Other: All systems not noted in ROS Statement are negative. 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, varicose veins, arthritis in spine, scratch markes on arm, History of Any Multi-Drug Resistant Organisms: None Reported Past Surgical History: Breast Surgery Additional Past Surgical History / Comment(s): breast biopsy, bilateral mastecomy Past Anesthesia/Blood Transfusion Reactions: Motion Sickness Past Psychological History: No Psychological Hx Reported Smoking Status: Current every day smoker Past Alcohol Use History: None Reported Past Drug Use History: None Reported - Past Family History Mother Family Medical History: Cancer Father Family Medical History: Myocardial Infarction ([place]) General Exam Limitations: no limitations General appearance: alert, in no apparent distress Head exam: Present: atraumatic, normocephalic, normal inspection Eye exam: Present: normal appearance, PERRL, EOMI. Absent: scleral icterus, conjunctival injection, periorbital swelling ENT exam: Present: normal exam, normal oropharynx, mucous membranes moist Respiratory exam: Present: normal lung sounds bilaterally. Absent: respiratory distress, wheezes, rales, rhonchi, stridor Cardiovascular Exam: Present: regular rate, normal rhythm, normal heart sounds. Absent: systolic murmur, diastolic murmur, rubs, gallop, clicks GI/Abdominal exam: Present: soft, normal bowel sounds. Absent: distended, tende rness, guarding, rebound, rigid Extremities exam: Present: normal inspection, full ROM, normal capillary refill. Absent: tenderness, pedal edema, joint swelling, calf tenderness Back exam: Absent: tenderness, CVA tenderness (R), CVA tenderness (L), muscle spasm, paraspinal tenderness, vertebral tenderness Expanded Back exam: Absent: saddle anesthesia Back exam: Sciatic Notch Tenderness: Right Neurological exam: Present: alert, oriented X3, CN II-XII intact Psychiatric exam: Present: normal affect, normal mood Skin exam: Present: warm, dry, intact, normal color. Absent: rash, cyanosis, diaphoretic Course Vital Signs 05/15/21 16:56 Temperature 98.2 F Pulse Rate 60 Respiratory 18 Rate Blood Pressure 113/67 O2 Sat by Pulse 95 Oximetry Medical Decision Making - Medical Decision Making Patient denies any injury to her right hip and is able to bear weight. She denies any bowel or bladder incontinence. There is no fevers. If that the pain is shooting from her right hip down her leg. She does have a history of degenerative disc disease and was instructed to follow-up with orthopedics. She was given pain medication in addition to the Lidoderm patches Disposition Clinical Impression: Sciatica Disposition: HOME SELF-CARE Condition: Good Instructions (If sedation given, give patient instructions): Sciatica (ED), Lower Back Exercises (ED) Additional Instructions: Return to the emergency room with any new or worsening symptoms including increased pain, fevers, incontinence of bowel or bladder. Take the medication as prescribed. Follow-up with the primary care doctor and orthopedics as needed. Prescriptions: Lidocaine [Lidoderm 5% Patch] 1 patch TRANSDERM DAILY 12 Days #12 patch predniSONE 40 mg PO DAILY #5 tab Is patient prescribed a controlled substance at d/c from ED?: No Referrals: Abhishek Martinez MD [Primary Care Provider] - 1-2 days Frankie Crow PAC [PHYSICIAN [employer] PROFESSOR] - 1-2 days Time of Disposition: 18:12
--- NOTE | 2021-05-15 17:51 | XR ---
EXAMINATION TYPE: XR Hip Complete RT DATE OF EXAM: 05/15/2021 COMPARISON: NONE HISTORY: Hip pain TECHNIQUE: 2 views FINDINGS: I see no fracture nor dislocation. Hip joint spaces are fairly well-maintained. Sacroiliac joint appears intact. Proximal femur is intact. IMPRESSION: Negative right hip exam. No fracture.
== END 2021-05-15 18:27 | disposition home or self-care (01) ==
LOC: EC 16:46
DX: M54.31 Sciatica, right side (principal); M79.7 Fibromyalgia; M19.90 Unspecified osteoarthritis, unspecified site; F17.200 Nicotine dependence, unspecified, uncomplicated
CPT/HCPCS: 73502; 99283; 96372; J2360

== ENCOUNTER 2021-07-09 12:51 | Emergency (ER) | payer OTHER ==
--- NOTE | 2021-07-09 14:31 | XR ---
EXAMINATION TYPE: XR ribs RT w pa chest xray DATE OF EXAM: 07/09/2021 CLINICAL HISTORY: Chest and right-sided rib pain with inspiration. TECHNIQUE: Single frontal view of the chest is obtained. A frontal and oblique images of the right-si ded ribs. COMPARISON: Chest x-ray September 12, 2020. CT chest September 26, 2019. FINDINGS: There is mild chronic emphysematous change without suspicious focal air space opacity, ple ural effusion, or pneumothorax seen. The cardiac silhouette size is stable and upper limits of alondra l. The osseous structures are intact. Surgical clips bilateral axilla are present. Bilateral breast surgically absent. Dedicated images right-sided ribs show no acute displaced fractures. No suspicious lytic or expansile rib lesion is seen. Overlying soft tissues are unremarkable. IMPRESSION: 1. Chronic emphysematous change without acute pulmonary process. 2. No acute displaced right-sided rib fracture.
[2021-07-09] MEDS ORDERED: MORPHINE SULFATE 4 MG/ML SYRINGE IM STA (16:15)
[2021-07-09] MEDS ORDERED: LIDOCAINE 5% PATCH TOPICAL STA (16:15)
--- NOTE | 2021-07-09 16:19 | ED ---
Back Pain HPI - General Chief Complaint: Back Pain/Injury Stated Complaint: right side & back pain Time Seen by Provider: 07/09/21 16:04 Source: patient Limitations: no limitations - History of Present Illness Initial Comments: 60-year-old female patient presents to the emergency department today for evaluation of right rib pain. Patient states she lifted her yesterday and felt a pop in her ribs. States she's had pain since. States she did go to physical therapy and it seemed to make the pain worse. She states she did take a [place] 10. This morning with minimal relief. She denies any difficulty breathing. She does have a mild cough. Denies hemoptysis. Denies fever or chills. Denies any abdominal pain, nausea, vomiting. Denies any back pain. Patient denies any headache, neck pain, shortness of breath, dizziness, weakness, abdominal pain, or difficulties with bowel movements or urination. - Related Data Home Medications Medication Instructions Recorded Confirmed Pregabalin [Lyrica] 200 mg PO TID 10/13/16 05/15/20 Escitalopram [Lexapro] 10 mg PO DAILY 06/16/17 05/15/20 Acetaminophen with Codeine 1 tab PO Q6H PRN 04/11/20 05/15/20 [Tylenol w/Codeine #4 Tablet] Previous Rx's Medication Instructions Recorded Hydrocodone/Acetaminophen [[place] 1 tab PO Q4-6H PRN 5 Days #21 tab 05/04/20 5-325] HYDROcodone/APAP 10-325MG [[place] 1 tab PO Q6H PRN #12 tab 03/21/21 10-325] Lidocaine [Lidoderm 5% Patch] 1 patch TRANSDERM DAILY 12 Days 05/15/21 #12 patch predniSONE 40 mg PO DAILY #5 tab 05/15/21 Lidocaine 5% Patch [Lidoderm] 1 patch TOPICAL DAILY #30 patch 07/09/21 Allergies Allergy/AdvReac Type Severity Reaction Status Date / Time tramadol Allergy Abdominal Verified 07/09/21 13:58 Pain ibuprofen [From Motrin] AdvReac Rash/Hives Verified 07/09/21 13:58 Review of Systems ROS Statement: Those systems with pertinent positive or pertinent negative responses have been documented in the HPI. ROS Other: All systems not noted in ROS Statement are negative. 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, varicose veins, arthritis in spine, scratch markes on arm, History of Any Multi-Drug Resistant Organisms: None Reported Past Surgical History: Breast Surgery Additional Past Surgical History / Comment(s): breast biopsy, bilateral mastecomy Past Anesthesia/Blood Transfusion Reactions: Motion Sickness Past Psychological History: No Psychological Hx Reported Smoking Status: Current every day smoker Past Alcohol Use History: None Reported Past Drug Use History: None Reported - Past Family History Mother Family Medical History: Cancer Father Family Medical History: Myocardial Infarction ([place]) General Exam Limitations: no limitations General appearance: alert, in no apparent distress, other (This is a well developed, well nourished adult female in no acute distress. ) ENT exam: Present: normal exam, normal oropharynx, mucous membranes moist Respiratory exam: Present: normal lung sounds bilaterally, chest wall tenderness (Right lateral). Absent: respiratory distress, wheezes, rales, rhonchi, stridor Cardiovascular Exam: Present: regular rate, normal rhythm, normal heart sounds. Absent: systolic murmur, diastolic murmur, rubs, gallop, clicks GI/Abdominal exam: Present: soft, normal bowel sounds. Absent: distended, tenderness, guarding, rebound, rigid Neurological exam: Present: alert, oriented X3, CN II-XII intact Psychiatric exam: Present: normal affect, normal mood Skin exam: Present: warm, dry, intact, normal color. Absent: rash Course Vital Signs 07/09/21 07/09/21 13:56 16:54 Temperature 97.7 F 97.9 F Pulse Rate 84 72 Respiratory 19 20 Rate Blood Pressure 126/77 O2 Sat by Pulse 98 94 L Oximetry Medical Decision Making - Medical Decision Making 60-year-old female patient presented to the emergency department today for evaluation of right rib injury after lifting her . Physical examination did reveal some tenderness over the right lateral ribs. No skin color changes. She is breathing without difficulty. X-rays were obtained and were negative for acute displaced fracture. We discussed possibility of occult hairline fracture versus soft tissue injury. She'll be given a dose of pain medication here. Given prescription for Lidoderm patches and she does have pain medication at home. She is instructed to follow-up with her primary care physician for recheck in 1-2 days especially if her symptoms are not improved. Return parameters were discussed in detail. She verbalizes understanding and agrees with this plan. My attending is Dr. Garcia. - Radiology Data Radiology results: report reviewed, image reviewed X-ray of the right ribs with chest were obtained. Report was reviewed in its entirety. Impression by Dr. Junior shows chronic emphysematous change without acute pulmonary process. No acute displaced right sided rib fracture. Disposition Clinical Impression: Rib pain on right side Disposition: HOME SELF-CARE Condition: Good Instructions (If sedation given, give patient instructions): Rib Fracture (ED) Additional Instructions: Perform coughing and deep breathing exercises. Take home medications as directed. Return for any new, worsening, or concerning symptoms. Prescriptions: Lidocaine 5% Patch [Lidoderm] 1 patch TOPICAL DAILY #30 patch Is patient prescribed a controlled substance at d/c from ED?: No Referrals: Abhishek Martinez MD [Primary Care Provider] - 1-2 days Time of Disposition: 16:19
[2021-07-09] MEDS ORDERED: HYDROcodone/APAP 10-325MG 1 EACH TAB PO ONE (16:45)
[2021-07-09 16:55] VITALS: BP 126/77; PULSE 72; RESP 20; TEMP 97.9
== END 2021-07-09 16:50 | disposition home or self-care (01) ==
LOC: EC 12:51
DX: R07.81 Pleurodynia (principal); M79.7 Fibromyalgia; M19.90 Unspecified osteoarthritis, unspecified site; F17.200 Nicotine dependence, unspecified, uncomplicated; Z79.52 Long term (current) use of systemic steroids; Z79.899 Other long term (current) drug therapy; Z85.3 Personal history of malignant neoplasm of breast; Z88.5 Allergy status to narcotic agent; Z88.6 Allergy status to analgesic agent; Z82.49 Family history of ischemic heart disease and other diseases of the circulatory system; X50.0XXA Overexertion from strenuous movement or load, initial encounter
CPT/HCPCS: 99283

== ENCOUNTER → 2021-11-06 | Outpatient (CLI) | payer OTHER ==
--- NOTE | 2021-11-07 01:42 | MR ---
EXAMINATION TYPE: MR lumbar spine wo con DATE OF EXAM: 11/06/2021 COMPARISON: 03/10/2020 HISTORY: Low back pain that radiates into left & right buttocks for 2 years Multiplanar multiecho imaging of the lumbar spine without contrast. Lumbar vertebrae have fairly norm al alignment. There is a mild degenerative subluxation at L4-5. There is no compression fracture. The re is some degenerative disc space narrowing at L3-4 and L4-5. There is no evidence of focal bone lissette truction. There is no spinal stenosis. Sacroiliac joints are intact. There is no lumbar paraspinal ma ss. There is some facet arthropathy and mild lateral recess stenosis at L4-5. IMPRESSION: Degenerative minimal first degree L4-5 spondylolisthesis. No fracture. Minor degenerative disc change s. No spinal stenosis. No significant change compared to the old exam.
== END | disposition home or self-care (01) ==
LOC: RADMRIMAIN 20:48
PROVIDERS: ATTEND Family Medicine
DX: M43.16 Spondylolisthesis, lumbar region (principal); M51.16 Intervertebral disc disorders with radiculopathy, lumbar region; M47.26 Other spondylosis with radiculopathy, lumbar region
CPT/HCPCS: 72148

== ENCOUNTER → 2022-03-19 | Outpatient (CLI) | payer OTHER ==
[2022-03-19 19:53] LABS: Basophils # (A) 0.03 X 10*3/uL (0.00-0.10); Basophils % (A) 0.2 %; Eosinophils # (A) 0.02 X 10*3/uL (0.04-0.35); Eosinophils % (A) 0.1 %; HCT 48.9 % (37.2-46.3); HGB 15.1 g/dL (12.0-15.0); Immature Grans, Automated 0.4 %; Lymphocytes # (A) 1.58 X 10*3/uL (0.90-5.00); Lymphocytes % (A) 11.8 %; MCH 28.3 pg (27.0-32.0); MCHC 30.9 g/dL (32.0-37.0); MCV 91.7 fL (80.0-97.0); Mean Platelet Volume 11.3 fL (9.5-12.2); Monocytes # (A) 0.75 X 10*3/uL (0.20-1.00); Monocytes % (A) 5.6 %; NRBC Per 100 WBC 0 /100 WBCS (0.0-0.0); Neutrophils % (A) 81.9 %; Platelet Count 283 X 10*3/uL (140-440); RBC 5.33 X 10*6/uL (4.10-5.20); RDW 15.7 % (11.5-14.5); WBC 13.43 X 10*3/uL (4.50-10.00)
[2022-03-20 02:55] LABS: Albumin 4.5 g/dL (3.8-4.9); Albumin/Globulin Ratio 2.14 (1.60-3.17); Anion Gap 13.1 mmol/L (10.00-18.00); BUN/Creat Ratio 11.33 Ratio (12.00-20.00); Blood Urea Nitrogen 6.8 mg/dL (9.0-27.0); Calcium 9.6 mg/dL (8.7-10.3); Carbon Dioxide 22.9 mmol/L (20.0-27.5); Globulin 2.1 g/dL (1.6-3.3); Magnesium 2.1 mg/dL (1.5-2.4); Non-African American GFR(CKD) 98.4 (60.0-200.0); Potassium 3.4 mmol/L (3.5-5.5); Total Bilirubin 0.3 mg/dL (0.30-1.20); Total Protein 6.6 g/dL (6.2-8.2)
== END | disposition home or self-care (01) ==
LOC: LABWHC1 10:50
PROVIDERS: ATTEND Family Medicine
DX: R10.13 Epigastric pain (principal); R63.4 Abnormal weight loss; R11.0 Nausea
CPT/HCPCS: 36415; 80053; 83690; 83735; 84443; 85025

== ENCOUNTER 2022-04-27 14:28 | Emergency (ER) | payer OTHER ==
[2022-04-27 16:02] VITALS: RESP 16
[2022-04-27] MEDS ORDERED: DIPH,PERTUS(ACELL)TETVAC-LF 0.5 ML VIAL IM ONE (16:02)
--- NOTE | 2022-04-27 16:55 | XR ---
EXAMINATION TYPE: XR hand complete LT DATE OF EXAM: 04/27/2022 COMPARISON: NONE HISTORY: Cat bite TECHNIQUE: 3 view FINDINGS: There is soft tissue swelling on the dorsum of the hand. Metacarpals are intact. No fractur e seen. No sign of a foreign body. IMPRESSION: Soft tissue swelling. No fracture seen.
[2022-04-27] MEDS ORDERED: SODIUM CHLORIDE 0.9% 2,000 ML IV ONE (16:56)
[2022-04-27] MEDS ORDERED: HYDROcodone/APAP 7.5-325MG 1 EACH TAB PO ONE (16:59)
[2022-04-27 17:00] LABS: Basophils # (A) 0.1 k/uL (0-0.2); Basophils % (A) 1 %; Eosinophils # (A) 0.1 k/uL (0-0.7); Eosinophils % (A) 1 %; HCT 46.3 % (34.0-46.0); HGB 14.8 gm/dL (11.4-16.0); Lymphocytes # (A) 1.9 k/uL (1.0-4.8); Lymphocytes % (A) 16 %; MCH 29.5 pg (25.0-35.0); MCV 92.1 fL (80.0-100.0); Mean Platelet Volume 8.1; Monocytes % (A) 9 %; Neutrophils # (A) 8.4 k/uL (1.3-7.7); Neutrophils % (A) 70 %; Platelet Count 224 k/uL (150-450); RBC 5.03 m/uL (3.80-5.40); RDW 14.5 % (11.5-15.5); WBC 11.9 k/uL (3.8-10.6)
[2022-04-27] MEDS ORDERED: SODIUM CHLORIDE 0.9% 1,000 ML IV SCH (17:00)
[2022-04-27 17:16] LABS: ALT 20 U/L (4-34); AST 22 U/L (14-36); African American GFR (CKD) >90 (>60 ml/min/1.73 sqM); Albumin 4.2 g/dL (3.5-5.0); Alkaline Phosphatase 89 U/L (38-126); Anion Gap 12 mmol/L; Blood Urea Nitrogen 10 mg/dL (7-17); C Reactive Protein 4.8 mg/dL (<1.0); Calcium 9.5 mg/dL (8.4-10.2); Carbon Dioxide 25 mmol/L (22-30); Chloride 102 mmol/L (98-107); Glucose 108 mg/dL (74-99); Non-African American GFR(CKD) >90 (>60 ml/min/1.73 sqM); Potassium 4.1 mmol/L (3.5-5.1); Sodium 139 mmol/L (137-145); Total Bilirubin 0.8 mg/dL (0.2-1.3); Total Protein 6.6 g/dL (6.3-8.2)
[2022-04-27 17:17] VITALS: BP 133/79
--- NOTE | 2022-04-27 17:57 | ED ---
General Adult HPI - General Chief complaint: Skin/Abscess/Foreign Body Stated complaint: cat bite, hand swelling Time Seen by Provider: 04/27/22 15:56 Source: patient Mode of arrival: ambulatory - History of Present Illness Initial comments: Patient is a 61-year-old female presenting with chief complaint of left hand swelling, tenderness, and warmth. Patient had a cat bite 2 days ago, this was her pet, she states that the cat is up-to-date on rabies vaccinations. Patient does not remember when her last tetanus vaccination was. Patient has full range of motion at the level of the wrist, she is unable to make a fist. Patient is able to move her fingers and admits to full sensation in all digits. She denies any fever, chills, nausea, vomiting, arm pain. - Related Data Home Medications Medication Instructions Recorded Confirmed Pregabalin [Lyrica] 200 mg PO TID 10/13/16 05/15/20 Escitalopram [Lexapro] 10 mg PO DAILY 06/16/17 05/15/20 Acetaminophen with Codeine 1 tab PO Q6H PRN 04/11/20 05/15/20 [Tylenol w/Codeine #4 Tablet] Previous Rx's Medication Instructions Recorded Hydrocodone/Acetaminophen [[place] 1 tab PO Q4-6H PRN 5 Days #21 tab 05/04/20 5-325] HYDROcodone/APAP 10-325MG [[place] 1 tab PO Q6H PRN #12 tab 03/21/21 10-325] Lidocaine [Lidoderm 5% Patch] 1 patch TRANSDERM DAILY 12 Days 05/15/21 #12 patch predniSONE 40 mg PO DAILY #5 tab 05/15/21 Lidocaine 5% Patch [Lidoderm] 1 patch TOPICAL DAILY #30 patch 07/09/21 Amoxic-Pot Clav 875-125Mg 1 tab PO BID 10 Days #20 tab 04/27/22 [Augmentin 875-125] Allergies Allergy/AdvReac Type Severity Reaction Status Date / Time tramadol Allergy Abdominal Verified 04/27/22 14:42 Pain ibuprofen [From Motrin] AdvReac Rash/Hives Verified 04/27/22 14:42 Review of Systems ROS Statement: Those systems with pertinent positive or pertinent negative responses have been documented in the HPI. ROS Other: All systems not noted in ROS Statement are negative. 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, varicose veins, arthritis in spine, scratch markes on arm, History of Any Multi-Drug Resistant Organisms: None Reported Past Surgical History: Breast Surgery Additional Past Surgical History / Comment(s): breast biopsy, bilateral mastecomy Past Anesthesia/Blood Transfusion Reactions: Motion Sickness Past Psychological History: No Psychological Hx Reported Smoking Status: Current every day smoker Past Alcohol Use History: None Reported Past Drug Use History: None Reported - Past Family History Mother Family Medical History: Cancer Father Family Medical History: Myocardial Infarction ([place]) General Exam Limitations: no limitations General appearance: alert, in no apparent distress Head exam: Present: atraumatic, normocephalic, normal inspection Eye exam: Present: normal appearance, EOMI. Absent: scleral icterus, periorbital swelling Neck exam: Present: normal inspection Respiratory exam: Present: normal lung sounds bilaterally. Absent: respiratory distress, wheezes, rales, rhonchi, stridor Cardiovascular Exam: Present: regular rate, normal rhythm, normal heart sounds. Absent: systolic murmur, diastolic murmur, rubs, gallop, clicks Left Hand Wrist exam: Present: tenderness, swelling, erythema, other (Warmth). Absent: full ROM Neuro motor exam: Present: wrist extension intact, fingers 2-5 abduction intact Vascular: Present: radial pulse (2+). Absent: vascular compromise Neurological exam: Present: alert, oriented X3, CN II-XII intact Psychiatric exam: Present: normal affect, normal mood Course Vital Signs 04/27/22 04/27/22 04/27/22 14:40 16:00 17:10 Temperature 98.8 F 98.7 F 98.3 F Pulse Rate 73 68 69 Respiratory 18 16 16 Rate Blood Pressure 104/66 133/79 O2 Sat by Pulse 95 100 97 Oximetry 04/27/22 18:37 Temperature 98.4 F Pulse Rate 74 Respiratory 16 Rate Blood Pressure 133/79 O2 Sat by Pulse 98 Oximetry Medical Decision Making - Medical Decision Making Patient is a 61-year-old female presenting for evaluation of cat bite to left hand. This occurred 2 days ago, she is complaining of redness, swelling, tenderness. On examination patient is able to move the fingers, however she cannot make a fist. She has full range of motion of the hand at the level of the wrist. Radial pulses 2+. X-ray shows soft tissue swelling. WBC 11.9 with left shift. CRP 4.8. Patient is given Unasyn, tetanus is updated. Patient is refusing to stay for continued IV antibiotics. Patient states that "I don't like hospitals". I explained to the patient that this infection could spread to the blood in be fatal if not appropriately treated, may cause permanent injury or loss of the hand if not treated appropriately. Patient conveyed verbal understanding and decided to sign out AGAINST MEDICAL ADVICE. Patient is of sound mind and body and able to make her own decisions. He received 1 dose IV antibiotics, sent prescription for Augmentin. Patient was instructed to follow- up with hand surgeon and call the office tomorrow. Call PCPs office tomorrow. Report back to ER with any new or worsening symptoms. Discussed return paramete rs answered all questions. Patient conveyed verbal understanding and agreed to the plan. I discussed this case with my attending Dr. Jeffries. - Lab Data Result diagrams: 04/27/22 16:35 04/27/22 16:35 Lab Results 04/27/22 04/27/22 04/27/22 Range/Units 16:35 16:35 16:35 WBC 11.9 H (3.8-10.6) k/uL RBC 5.03 (3.80-5.40) m/uL Hgb 14.8 (11.4-16.0) gm/dL Hct 46.3 H (34.0-46.0) % MCV 92.1 (80.0-100.0) fL MCH 29.5 (25.0-35.0) pg MCHC 32.0 (31.0-37.0) g/dL RDW 14.5 (11.5-15.5) % Plt Count 224 (150-450) k/uL MPV 8.1 Neutrophils % 70 % Lymphocytes % 16 % Monocytes % 9 % Eosinophils % 1 % Basophils % 1 % Neutrophils # 8.4 H (1.3-7.7) k/uL Lymphocytes # 1.9 (1.0-4.8) k/uL Monocytes # 1.0 (0-1.0) k/uL Eosinophils # 0.1 (0-0.7) k/uL Basophils # 0.1 (0-0.2) k/uL ESR 10 (0-20) mm/hr Sodium 139 (137-145) mmol/L Potassium 4.1 (3.5-5.1) mmol/L Chloride 102 (98-107) mmol/L Carbon Dioxide 25 (22-30) mmol/L Anion Gap 12 mmol/L BUN 10 (7-17) mg/dL Creatinine 0.57 (0.52-1.04) mg/dL Est GFR (CKD-EPI)AfAm >90 (>60 ml/min/1.73 sqM) Est GFR (CKD-EPI)NonAf >90 (>60 ml/min/1.73 sqM) Glucose 108 H (74-99) mg/dL Plasma Lactic Acid Bautista 0.7 (0.7-2.0) mmol/L Calcium 9.5 (8.4-10.2) mg/dL Total Bilirubin 0.8 (0.2-1.3) mg/dL AST 22 (14-36) U/L ALT 20 (4-34) U/L Alkaline Phosphatase 89 (38-126) U/L C-Reactive Protein 4.8 H (<1.0) mg/dL Total Protein 6.6 (6.3-8.2) g/dL Albumin 4.2 (3.5-5.0) g/dL Disposition Clinical Impression: Cellulitis, Cat bite Disposition: Left Against Medical Advice Condition: Fair Instructions (If sedation given, give patient instructions): Animal Bite (ED), Cellulitis (ED) Additional Instructions: Follow-up with PCP and hand surgery. Take antibiotic as prescribed. Report back to ER with any new or worsening symptoms. Prescriptions: Amoxic-Pot Clav 875-125Mg [Augmentin 875-125] 1 tab PO BID 10 Days #20 tab Is patient prescribed a controlled substance at d/c from ED?: No Referrals: Abhishek Martinez MD [Primary Care Provider] - 1-2 days Tahira Pandya DO [Doctor of Osteopathic Medicine] - 1-2 days Time of Disposition: 17:57
[2022-04-27] MEDS ORDERED: AMPICILLIN-SULBACTAM 3 GM in SODIUM CHLORIDE 0.9% 100 ML IVPB SCH (18:00)
[2022-04-27 18:22] LABS: Erythrocyte Sedimentation Rate 10 mm/hr (0-20)
[2022-04-27 18:38] VITALS: PULSE 74; TEMP 98.4
== END 2022-04-27 18:40 | disposition left against medical advice (07) ==
LOC: EC 14:28
DX: L03.114 Cellulitis of left upper limb (principal); F17.200 Nicotine dependence, unspecified, uncomplicated; Z82.49 Family history of ischemic heart disease and other diseases of the circulatory system; Z88.5 Allergy status to narcotic agent; Z88.8 Allergy status to other drugs, medicaments and biological substances; Z23 Encounter for immunization
CPT/HCPCS: 36415; 80053; 85652; 83605; 85025; 86140; 87040; 73130; 90715; 99283; 96365; 96361; 90471; J0295

== ENCOUNTER → 2023-04-07 | Outpatient (CLI) | payer OTHER ==
--- NOTE | 2023-04-07 14:16 | CT ---
EXAMINATION TYPE: CT chest w con CT DLP: 105 mGycm, Automated exposure control for dose reduction was used. DATE OF EXAM: 04/07/2023 1:19 PM COMPARISON: 09/26/2019 CLINICAL INDICATION:Female, 62 years old with history of R63.4, R05.9, Z85.3, F17.210; PHH, cough, we ight loss, personal tobacco use TECHNIQUE: Multiple axial images were obtained through the chest. Sagittal and coronal reformats were created for review. Contrast used:100 mL of Isovue 300 with IV Contrast (None if empty) Oral contrast used: (None if empty) FINDINGS: LUNGS/ PLEURA: The lung parenchyma appears unremarkable. AIRWAY: Patent and unremarkable. HEART: Size within normal limits. MEDIASTINUM: No greater than 1.0 cm in short axis lymph nodes. Right high paratracheal lymph node fahad suring 9 mm in short axis. VASCULATURE: No aortic aneurysm. MUSCULOSKELETAL: No acute osseous abnormalities SOFT TISSUES/LYMPH NODES: Postsurgical changes to the anterior chest. Surgical clips in the bilateral axilla. LOWER NECK: No significant findings. UPPER ABDOMEN: No significant findings. IMPRESSION: 1. No evidence for lymphadenopathy or mass. 2. Mild emphysema changes.
== END | disposition home or self-care (01) ==
LOC: RADCTMAIN 12:46
PROVIDERS: ATTEND Family Medicine
DX: J43.9 Emphysema, unspecified (principal); R63.4 Abnormal weight loss; R05.9 Cough, unspecified; Z85.3 Personal history of malignant neoplasm of breast; F17.210 Nicotine dependence, cigarettes, uncomplicated
CPT/HCPCS: 71260; Q9967

== ENCOUNTER 2023-06-08 15:19 | Emergency (ER) | payer OTHER ==
--- NOTE | 2023-06-08 16:19 | ED ---
General Adult HPI <BangKimberlee chamberlainshua - Last Filed: 06/08/23 19:07> - General Source: patient, RN notes reviewed <Shanti Hess - Last Filed: 06/08/23 23:17> - General Stated complaint: back pain Time Seen by Provider: 06/08/23 16:17 - History of Present Illness Initial comments: 62-year-old female presents to the ED with a chief complaint of back pain. Patient reports that she was at rest when she started to feel pain of the middle of her upper back. Reports pain was so bad she started to become nauseous with this. Reports that at onset of pain became short of breath lasting for approximately 5 minutes. Reports now back to normal. Denies chest pain. Pain does not radiate to the chest. Denies abdominal pain. No changes in bowel or bladder habits. No saddle anesthesia or incontinence. Denies any recent trauma or injury. Patient is a pack per day smoker. No other symptoms. (Stephen Calle) 62 year old female presents to the emergency department for chief complaint of central thoracic back pain. She reports that this started yesterday and is associated with nausea. She admits to shortness of breath but no worse than usual. Denies chest pain, fever. (Shanti Hess) - Related Data Home Medications Medication Instructions Recorded Confirmed Pregabalin [Lyrica] 200 mg PO TID 10/13/16 05/15/20 Escitalopram [Lexapro] 10 mg PO DAILY 06/16/17 05/15/20 Acetaminophen with Codeine 1 tab PO Q6H PRN 04/11/20 05/15/20 [Tylenol w/Codeine #4 Tablet] Previous Rx's Medication Instructions Recorded Hydrocodone/Acetaminophen [[place] 1 tab PO Q4-6H PRN 5 Days #21 tab 05/04/20 5-325] HYDROcodone/APAP 10-325MG [[place] 1 tab PO Q6H PRN #12 tab 03/21/21 10-325] Lidocaine [Lidoderm 5% Patch] 1 patch TRANSDERM DAILY 12 Days 05/15/21 #12 patch predniSONE 40 mg PO DAILY #5 tab 05/15/21 Lidocaine 5% Patch [Lidoderm] 1 patch TOPICAL DAILY #30 patch 07/09/21 Amoxic-Pot Clav 875-125Mg 1 tab PO BID 10 Days #20 tab 04/27/22 [Augmentin 875-125] Allergies Allergy/AdvReac Type Severity Reaction Status Date / Time tramadol Allergy Abdominal Verified 06/08/23 16:19 Pain ibuprofen [From Motrin] AdvReac Rash/Hives Verified 06/08/23 16:19 Review of Systems ROS Other: All systems not noted in ROS Statement are negative. <Stephen Calle - Last Filed: 06/08/23 19:07> ROS Other: All systems not noted in ROS Statement are negative. <Shanti Hess - Last Filed: 06/08/23 23:17> ROS Statement: Those systems with pertinent positive or pertinent negative responses have been documented in the HPI. 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, varicose veins, arthritis in spine, scratch markes on arm, History of Any Multi-Drug Resistant Organisms: None Reported Past Surgical History: Breast Surgery Additional Past Surgical History / Comment(s): breast biopsy, bilateral mastecomy Past Anesthesia/Blood Transfusion Reactions: Motion Sickness Past Psychological History: No Psychological Hx Reported Smoking Status: Current every day smoker Past Alcohol Use History: None Reported Past Drug Use History: None Reported - Past Family History Mother Family Medical History: Cancer Father Family Medical History: Myocardial Infarction ([place]) <Shanti Hess - Last Filed: 06/08/23 23:17> General Exam Limitations: no limitations General appearance: alert, in no apparent distress Eye exam: Present: normal appearance Neck exam: Present: normal inspection Respiratory exam: Present: normal lung sounds bilaterally Cardiovascular Exam: Present: regular rate, normal rhythm Extremities exam: Present: other (Thoracic tenderness to palpation. ) Neurological exam: Present: alert, oriented X3 Skin exam: Present: warm, dry <Stephen Calle - Last Filed: 06/08/23 19:07> <Shanti Hess - Last Filed: 06/08/23 23:17> - General Exam Comments Initial Comments: Visual Physical Exam Vital signs reviewed General: Well-appearing, nontoxic, no acute distress. Head: Normocephalic, atraumatic Eyes: PERRLA, EOMI ENT: Airway patent Chest: Nonlabored breathing Skin: No visual rash, normal skin tone Neuro: Alert and oriented 3 Musculoskeletal: No gross abnormalities (Shanti Hess) Course Vital Signs 06/08/23 06/08/23 06/08/23 16:17 18:47 20:38 Temperature 98.2 F 97.9 F Pulse Rate 62 61 76 Respiratory 18 16 18 Rate Blood Pressure 111/71 133/81 125/79 O2 Sat by Pulse 99 98 96 Oximetry Medical Decision Making - Lab Data Result diagrams: 06/08/23 18:31 06/08/23 18:31 <Stephen Calle - Last Filed: 06/08/23 19:07> - Lab Data Result diagrams: 06/08/23 18:31 06/08/23 18:31 <Shanti Hess - Last Filed: 06/08/23 23:17> - Medical Decision Making Was pt. sent in by a medical professional or institution (, PA, PACK OUT OPERATOR, urgent care, hospital, or usp...) When possible be specific @ -[No] Did you speak to anyone other than the patient for history (EMS, parent, family, police, friend...)? What history was obtained from this source @ -[No] Did you review nursing and triage notes (agree or disagree)? Why? @ -[I reviewed and agree with nursing and triage notes] Were old charts reviewed (outside hosp., previous admission, EMS record, old EKG, old radiological studies, urgent care reports/EKG's, usp records)? Report findings @ -[No old charts were reviewed] Differential Diagnosis (chest pain, altered mental status, abdominal pain women, abdominal pain men, vaginal bleeding, weakness, fever, dyspnea, syncope, headache, dizziness, GI bleed, back pain, seizure, CVA, palpatations, mental health, musculoskeletal)? @ -Differential Back Pain: Strain, zoster, cauda equina syndrome, epidural abscess, vertebral osteomyelitis, discitis, fracture, subluxation, disc herniation, DJD, spinal stenosis, dissection, AAA, pancreatitis, peptic ulcer disease, pyelonephritis, kidney stone, this is not meant to be an all-inclusive list. EKG interpreted by me (3pts min.). @ -EKG shows a sinus bradycardia at [address] or T-wave changes. X-rays interpreted by me (1pt min.). @ -Chest X-ray interpreted by me showing no acute findings. CT interpreted by me (1pt min.). @ -[None done] U/S interpreted by me (1pt. min.). @ -[None done] What testing was considered but not performed or refused? (CT, X-rays, U/S, labs)? Why? @ -[None] What meds were considered but not given or refused? Why? @ -[None] Did you discuss the management of the patient with other professionals (professionals i.e. , PA, PACK OUT OPERATOR, lab, RT, psych nurse, social media community manager, corporate lawyer, teacher, sales promotion officer, pillowcase maker)? Give summary @ -[No] Was smoking cessation discussed for >3mins.? @ -[No] Was critical care preformed (if so, how long)? @ -[No] Were there social determinants of health that impacted care today? How? (Homelessness, low income, unemployed, alcoholism, drug addiction, transportation, low edu. Level, literacy, decrease access to med. care, senior living, rehab)? @ -[No] Was there de-escalation of care discussed even if they declined (Discuss DNR or withdrawal of care, Hospice)? DNR status @ -[No] What co-morbidities impacted this encounter? (DM, HTN, Smoking, COPD, CAD, Cancer, CVA, ARF, Chemo, Hep., AIDS, mental health diagnosis, sleep apnea, morbid obesity)? @ -[None] Was patient admitted / discharged? Hospital course, mention meds given and route, prescriptions, significant lab abnormalities, going to OR and other pertinent info. @ -Pending 62-year-old female presented to the ED with a chief complaint of upper mid back pain onset yesterday. Chest x-ray at this time unremarkable for acute process. Laboratory studies and thoracic x-ray at this time pending. Case signed out to Shanti LEDBETTER (Stephen Calle) I preformed the quick note portion of this chart. Electronically signed by Shanti Hess PA-C. This patient was signed out to be pending laboratory results and thoracic x-ray. Patient examined and laboratory studies reviewed. Troponin Negative, d-dimer negative, CBC and CMP unremarkable. Thoracic and chest x-rays also reviewed which showed no acute abnormality. She reports symptoms improvement with pain medication. Discussed these findings with the patient and patient is agreeable with discharge plan. Case discussed with Dr. Neff (Shanti Hess) - Lab Data Lab Results 06/08/23 06/08/23 06/08/23 Range/Units 18:31 18:31 18:31 WBC 10.0 (3.8-10.6) k/uL RBC 4.89 (3.80-5.40) m/uL Hgb 15.2 (11.4-16.0) gm/dL Hct 45.9 (34.0-46.0) % MCV 93.9 (80.0-100.0) fL MCH 31.1 (25.0-35.0) pg MCHC 33.1 (31.0-37.0) g/dL RDW 14.4 (11.5-15.5) % Plt Count 284 (150-450) k/uL MPV 8.0 Neutrophils % 70 % Lymphocytes % 19 % Monocytes % 6 % Eosinophils % 1 % Basophils % 0 % Neutrophils # 7.0 (1.3-7.7) k/uL Lymphocytes # 1.9 (1.0-4.8) k/uL Monocytes # 0.6 (0-1.0) k/uL Eosinophils # 0.1 (0-0.7) k/uL Basophils # 0.0 (0-0.2) k/uL D-Dimer 0.20 (<0.60) mg/L FEU Sodium (137-145) mmol/L Potassium (3.5-5.1) mmol/L Chloride (98-107) mmol/L Carbon Dioxide (22-30) mmol/L Anion Gap mmol/L BUN (7-17) mg/dL Creatinine (0.52-1.04) mg/dL Est GFR (CKD-EPI)AfAm (>60 ml/min/1.73 sqM) Est GFR (CKD-EPI)NonAf (>60 ml/min/1.73 sqM) Glucose (74-99) mg/dL Calcium (8.4-10.2) mg/dL Total Bilirubin (0.2-1.3) mg/dL AST (14-36) U/L ALT (4-34) U/L Alkaline Phosphatase (38-126) U/L Troponin I (0.000-0.034) ng/mL Total Protein (6.3-8.2) g/dL Albumin (3.5-5.0) g/dL Urine Color Colorless Urine Appearance Clear (Clear) Urine pH 7.0 (5.0-8.0) Ur Specific [place] 1.006 (1.001-1.035) Urine Protein Negative (Negative) Urine Glucose (UA) Negative (Negative) Urine Ketones Negative (Negative) Urine Blood Negative (Negative) Urine Nitrite Negative (Negative) Urine Bilirubin Negative (Negative) Urine Urobilinogen <2.0 (<2.0) mg/dL Ur Leukocyte Esterase Trace H (Negative) Urine RBC 1 (0-5) /hpf Urine WBC 5 (0-5) /hpf Ur Squamous Epith Cells <1 (0-4) /hpf Urine Bacteria Rare H (None) /hpf Urine Mucus Rare H (None) /hpf 06/08/23 06/08/23 Range/Units 18:31 18:31 WBC (3.8-10.6) k/uL RBC (3.80-5.40) m/uL Hgb (11.4-16.0) gm/dL Hct (34.0-46.0) % MCV (80.0-100.0) fL MCH (25.0-35.0) pg MCHC (31.0-37.0) g/dL RDW (11.5-15.5) % Plt Count (150-450) k/uL MPV Neutrophils % % Lymphocytes % % Monocytes % % Eosinophils % % Basophils % % Neutrophils # (1.3-7.7) k/uL Lymphocytes # (1.0-4.8) k/uL Monocytes # (0-1.0) k/uL Eosinophils # (0-0.7) k/uL Basophils # (0-0.2) k/uL D-Dimer (<0.60) mg/L FEU Sodium 140 (137-145) mmol/L Potassium 4.2 (3.5-5.1) mmol/L Chloride 107 (98-107) mmol/L Carbon Dioxide 26 (22-30) mmol/L Anion Gap 7 mmol/L BUN 8 (7-17) mg/dL Creatinine 0.45 L (0.52-1.04) mg/dL Est GFR (CKD-EPI)AfAm >90 (>60 ml/min/1.73 sqM) Est GFR (CKD-EPI)NonAf >90 (>60 ml/min/1.73 sqM) Glucose 105 H (74-99) mg/dL Calcium 9.6 (8.4-10.2) mg/dL Total Bilirubin 0.6 (0.2-1.3) mg/dL AST 20 (14-36) U/L ALT 14 (4-34) U/L Alkaline Phosphatase 69 (38-126) U/L Troponin I <0.012 (0.000-0.034) ng/mL Total Protein 6.7 (6.3-8.2) g/dL Albumin 4.1 (3.5-5.0) g/dL Urine Color Urine Appearance (Clear) Urine pH (5.0-8.0) Ur Specific [place] (1.001-1.035) Urine Protein (Negative) Urine Glucose (UA) (Negative) Urine Ketones (Negative) Urine Blood (Negative) Urine Nitrite (Negative) Urine Bilirubin (Negative) Urine Urobilinogen (<2.0) mg/dL Ur Leukocyte Esterase (Negative) Urine RBC (0-5) /hpf Urine WBC (0-5) /hpf Ur Squamous Epith Cells (0-4) /hpf Urine Bacteria (None) /hpf Urine Mucus (None) /hpf Disposition <Stephen Calle - Last Filed: 06/08/23 19:07> Is patient prescribed a controlled substance at d/c from ED?: No <Shanti Hess - Last Filed: 06/08/23 23:17> Clinical Impression: Thoracic back pain Disposition: HOME SELF-CARE Condition: Stable Instructions (If sedation given, give patient instructions): Back Pain (ED) Additional Instructions: Alternate Tylenol and Motrin as needed for pain. Please follow up with your primary care provider. Return to the emergency department for new or worsening symptoms. Referrals: Abhishek Martinez MD [Primary Care Provider] - 1-2 days
--- NOTE | 2023-06-08 17:05 | XR ---
EXAMINATION TYPE: XR chest 2V DATE OF EXAM: 06/08/2023 4:46 PM CLINICAL INDICATION:Female, 62 years old with history of pain; COMPARISON: Chest radiographs from 07/09/2021 TECHNIQUE: XR chest 2V Frontal and lateral views of the chest. FINDINGS: Lungs/Pleura: There is no evidence of pleural effusion, focal consolidation, or pneumothorax. Pulmonary vascularity: Unremarkable. Heart/mediastinum: Cardiomediastinal silhouette is unremarkable. Musculoskeletal: No acute osseous pathology. IMPRESSION: No acute cardiopulmonary disease/process.
[2023-06-08] MEDS ORDERED: SODIUM CHLORIDE 0.9% 1,000 ML IV STA (17:58)
[2023-06-08] MEDS ORDERED: MORPHINE SULFATE 4 MG/ML SYRINGE IVP STA (17:59)
[2023-06-08 18:43] LABS: Basophils % (A) 0 %; Eosinophils # (A) 0.1 k/uL (0-0.7); Eosinophils % (A) 1 %; HCT 45.9 % (34.0-46.0); HGB 15.2 gm/dL (11.4-16.0); Lymphocytes # (A) 1.9 k/uL (1.0-4.8); Lymphocytes % (A) 19 %; MCH 31.1 pg (25.0-35.0); MCHC 33.1 g/dL (31.0-37.0); MCV 93.9 fL (80.0-100.0); Monocytes # (A) 0.6 k/uL (0-1.0); Monocytes % (A) 6 %; Neutrophils % (A) 70 %; Platelet Count 284 k/uL (150-450); RBC 4.89 m/uL (3.80-5.40); RDW 14.4 % (11.5-15.5)
[2023-06-08 18:53] VITALS: TEMP 97.9
[2023-06-08 18:54] LABS: ALT 14 U/L (4-34); AST 20 U/L (14-36); African American GFR (CKD) >90 (>60 ml/min/1.73 sqM); Albumin 4.1 g/dL (3.5-5.0); Alkaline Phosphatase 69 U/L (38-126); Anion Gap 7 mmol/L; Blood Urea Nitrogen 8 mg/dL (7-17); Calcium 9.6 mg/dL (8.4-10.2); Carbon Dioxide 26 mmol/L (22-30); Chloride 107 mmol/L (98-107); Glucose 105 mg/dL (74-99); Non-African American GFR(CKD) >90 (>60 ml/min/1.73 sqM); Potassium 4.2 mmol/L (3.5-5.1); Sodium 140 mmol/L (137-145); Total Bilirubin 0.6 mg/dL (0.2-1.3); Total Protein 6.7 g/dL (6.3-8.2)
[2023-06-08 19:12] LABS: Appearance,Urine Clear (Clear); Bacteria,Urine Rare /hpf; Bilirubin,Urine Negative (Negative); Blood,Urine Negative (Negative); Color,Urine Colorless; Glucose,Urine (UA) Negative (Negative); Ketones,Urine Negative (Negative); Leukocyte Esterase,Urine Trace (Negative); Mucus,Urine Rare /hpf; Nitrite,Urine Negative (Negative); Protein,Urine Negative (Negative); RBC,Urine 1 /hpf (0-5); Specific Gravity,Urine 1.006 (1.001-1.035); Squamous Epithelial Cell,Urine <1 /hpf (0-4); Urobilinogen,Urine <2.0 mg/dL (<2.0); WBC,Urine 5 /hpf (0-5)
--- NOTE | 2023-06-08 19:14 | XR ---
EXAMINATION TYPE: XR thoracic spine 2V DATE OF EXAM: 06/08/2023 6:41 PM CLINICAL INDICATION:Female, 62 years old with history of midline thoracic TTP; PHH COMPARISON: None TECHNIQUE: XR thoracic spine 2V views of the thoracic spine in Frontal and lateral projections. FINDINGS: No evidence of acute fracture. There is no evidence of disk space narrowing or loss of vertebral bod y height. There is normal alignment of the thoracic vertebral bodies. IMPRESSION: No acute osseous pathology.
[2023-06-08] MEDS ORDERED: ACET/COD 300 MG/30 MG STARTER PACK 6 TAB BTL PO STA (20:29)
[2023-06-08 20:41] VITALS: BP 125/79; PULSE 76; RESP 18
== END 2023-06-08 20:49 | disposition home or self-care (01) ==
LOC: EC 15:19
DX: M54.6 Pain in thoracic spine (principal); R00.1 Bradycardia, unspecified; M79.7 Fibromyalgia; F17.200 Nicotine dependence, unspecified, uncomplicated; Z79.899 Other long term (current) drug therapy; Z88.5 Allergy status to narcotic agent
CPT/HCPCS: 36415; 93005; 85379; 80053; 84484; 85025; 81001; 72070; 71046; 99284; 96374; 96361 ×2; J2270

== ENCOUNTER 2023-10-07 15:52 | Emergency (ER) | payer OTHER ==
[2023-10-07 16:13] VITALS: RESP 16
--- NOTE | 2023-10-07 16:23 | ED ---
General Adult HPI - General Chief complaint: Fall Stated complaint: FALL Time Seen by Provider: 10/07/23 16:03 Source: patient, RN notes reviewed Mode of arrival: ambulatory Limitations: no limitations - History of Present Illness Initial comments: 62-year-old female presents to the emergency department for evaluation of right- sided rib pain following a fall that occurred today around 2:00. Patient states that the steps to her house are wobbly which caused her to trip and fall hitting her right side on the porch. She reports pain to the right-sided chest wall. She denies any other injury. Denies head injury, loss of consciousness, blood thinners. - Related Data Home Medications Medication Instructions Recorded Confirmed Pregabalin [Lyrica] 200 mg PO TID 10/13/16 05/15/20 Escitalopram [Lexapro] 10 mg PO DAILY 06/16/17 05/15/20 Acetaminophen with Codeine 1 tab PO Q6H PRN 04/11/20 05/15/20 [Tylenol w/Codeine #4 Tablet] Previous Rx's Medication Instructions Recorded Hydrocodone/Acetaminophen [[place] 1 tab PO Q4-6H PRN 5 Days #21 tab 05/04/20 5-325] HYDROcodone/APAP 10-325MG [[place] 1 tab PO Q6H PRN #12 tab 03/21/21 10-325] Lidocaine [Lidoderm 5% Patch] 1 patch TRANSDERM DAILY 12 Days 05/15/21 #12 patch RX: predniSONE 40 mg PO DAILY #5 tab 05/15/21 Lidocaine 5% Patch [Lidoderm] 1 patch TOPICAL DAILY #30 patch 07/09/21 Amoxic-Pot Clav 875-125Mg 1 tab PO BID 10 Days #20 tab 04/27/22 [Augmentin 875-125] Allergies Allergy/AdvReac Type Severity Reaction Status Date / Time tramadol Allergy Abdominal Verified 06/08/23 16:19 Pain ibuprofen [From Motrin] AdvReac Rash/Hives Verified 06/08/23 16:19 Review of Systems ROS Statement: Those systems with pertinent positive or pertinent negative responses have been documented in the HPI. ROS Other: All systems not noted in ROS Statement are negative. 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, varicose veins, arthritis in spine, scratch markes on arm, History of Any Multi-Drug Resistant Organisms: None Reported Past Surgical History: Breast Surgery Additional Past Surgical History / Comment(s): breast biopsy, bilateral mastecomy Past Anesthesia/Blood Transfusion Reactions: Motion Sickness Past Psychological History: No Psychological Hx Reported Smoking Status: Current every day smoker Past Alcohol Use History: None Reported Past Drug Use History: None Reported - Past Family History Mother Family Medical History: Cancer Father Family Medical History: Myocardial Infarction ([place]) General Exam Limitations: no limitations General appearance: alert, in no apparent distress Head exam: Present: atraumatic, normocephalic, normal inspection Eye exam: Present: normal appearance, PERRL, EOMI. Absent: scleral icterus, conjunctival injection, periorbital swelling ENT exam: Present: normal exam, mucous membranes moist Neck exam: Present: normal inspection, full ROM. Absent: tenderness, meningismus, lymphadenopathy Respiratory exam: Present: normal lung sounds bilaterally, chest wall tenderness (right ribs). Absent: respiratory distress, wheezes, rales, rhonchi, stridor Cardiovascular Exam: Present: regular rate, normal rhythm, normal heart sounds. Absent: systolic murmur, diastolic murmur, rubs, gallop, clicks GI/Abdominal exam: Present: soft, normal bowel sounds. Absent: distended, tenderness, guarding, rebound, rigid Course Vital Signs 10/07/23 15:59 Temperature 97.8 F Pulse Rate 69 Respiratory 16 Rate Blood Pressure 105/69 O2 Sat by Pulse 99 Oximetry Medical Decision Making - Medical Decision Making Was pt. sent in by a medical professional or institution (, PA, DOCUMENTATION CONSULTANT, urgent care, hospital, or [facility]...) When possible be specific @ -No Did you speak to anyone other than the patient for history (EMS, parent, family, police, friend...)? What history was obtained from this source @ -No Did you review nursing and triage notes (agree or disagree)? Why? @ -I reviewed and agree with nursing and triage notes Were old charts reviewed (outside hosp., previous admission, EMS record, old EKG, old radiological studies, urgent care reports/EKG's, [facility] records)? Report findings @ -No old charts were reviewed Differential Diagnosis (chest pain, altered mental status, abdominal pain women, abdominal pain men, vaginal bleeding, weakness, fever, dyspnea, syncope, headache, dizziness, GI bleed, back pain, seizure, CVA, palpatations, mental health, musculoskeletal)? @ -Differential Musculoskeletal Muscular strain, contusion, ligament sprain, fracture, arthritis, septic arthritis, bursitis, cellulitis, muscle spasm, nerve compression, DVT, arterial occlusion, herpes zoster, electrolyte abnormality, tumor.... This is not meant to be in all inclusive list EKG interpreted by me (3pts min.). @ -None X-rays interpreted by me (1pt min.). @ -X-ray ribs right show no evidence acute fracture, no evidence of pneumothorax CT interpreted by me (1pt min.). @ -None done U/S interpreted by me (1pt. min.). @ -None done What testing was considered but not performed or refused? (CT, X-rays, U/S, labs)? Why? @ -None What meds were considered but not given or refused? Why? @ -None Did you discuss the management of the patient with other professionals (professionals i.e. , PA, DOCUMENTATION CONSULTANT, lab, RT, psych nurse, social insurance administrator, race starter, teacher, deck officer, case assistant)? Give summary @ -No Was smoking cessation discussed for >3mins.? @ -No Was critical care preformed (if so, how long)? @ -No Were there social determinants of health that impacted care today? How? (Homelessness, low income, unemployed, alcoholism, drug addiction, transportation, low edu. Level, literacy, decrease access to med. care, custodial, rehab)? @ -No Was there de-escalation of care discussed even if they declined (Discuss DNR or withdrawal of care, Hospice)? DNR status @ -No What co-morbidities impacted this encounter? (DM, HTN, Smoking, COPD, CAD, Cancer, CVA, ARF, Chemo, Hep., AIDS, mental health diagnosis, sleep apnea, morbid obesity)? @ -None Was patient admitted / discharged? Hospital course, mention meds given and route, prescriptions, significant lab abnormalities, going to OR and other pertinent info. @ -Discharged. Patient presented to the emergency department for evaluation of right-sided rib pain following a fall that occurred today. She denies any other injury, denies loss of consciousness, denies blood thinners. Patient has some tenderness to the right lateral chest wall. No overlying ecchymosis. X-rays obtained which show no acute fracture. Patient provided medication for pain c ontrol. Provided incentive spirometry and instructed on how to use it as. Patient will be discharged home. Patient understanding agreeable plan. Patient stable at time of discharge. Case discussed with Dr. Judge. Undiagnosed new problem with uncertain prognosis? @ -No Drug Therapy requiring intensive monitoring for toxicity (Heparin, Nitro, Insulin, Cardizem)? @ -No Were any procedures done? @ -No Diagnosis/symptom? @ -Rib contusion Acute, or Chronic, or Acute on Chronic? @ -Acute Uncomplicated (without systemic symptoms) or Complicated (systemic symptoms)? @ -Uncomplicated Side effects of treatment? @ -No Exacerbation, Progression, or Severe Exacerbation? @ -No Poses a threat to life or bodily function? How? (Chest pain, [place], [place], pneumonia, PE, COPD, DKA, ARF, appy, cholecystitis, CVA, Diverticulitis, Homicidal, Suicidal, threat to staff... and all critical care pts) @ -No Disposition Clinical Impression: Fall, Contusion of rib on right side Disposition: HOME SELF-CARE Condition: Stable Instructions (If sedation given, give patient instructions): Fall Prevention (ED), Rib Contusion (ED) Additional Instructions: Please follow up with your primary care provider. Return to the emergency department for new or worsening symptoms. Is patient prescribed a controlled substance at d/c from ED?: No Referrals: Abhishek Martinez MD [Primary Care Provider] - 1-2 days
[2023-10-07] MEDS: ACETAMINOPHEN TAB 325 MG TAB PO STA (16:41)
[2023-10-07] MEDS: MORPHINE SULFATE 4 MG/ML SYRINGE IM STA (16:42)
[2023-10-07] MEDS: LIDOCAINE 4% PATCH TOPICAL ONE (16:43)
--- NOTE | 2023-10-07 16:59 | XR ---
EXAMINATION TYPE: XR ribs RT w pa chest xray DATE OF EXAM: 10/07/2023 4:42 PM CLINICAL INDICATION:Female, 62 years old with history of fall, pain; COMPARISON: 06/08/2023. TECHNIQUE: XR ribs RT w pa chest xray; Frontal and oblique views of the ribs with frontal chest radio graph. FINDINGS: The ribs have a normal appearance. No evidence of fracture. Overall, the lungs are clear. The cardiac silhouette is normal in size. The remaining osseous structures are intact. Right axilla surgical clips. IMPRESSION: No acute osseous pathology.
[2023-10-07] MEDS: ACET/COD 300 MG/30 MG STARTER PACK 6 TAB BTL PO STA (17:26)
[2023-10-07 17:35] VITALS: BP 102/67; PULSE 66; TEMP 98
== END 2023-10-07 17:28 | disposition home or self-care (01) ==
LOC: EC 15:52
DX: S20.211A Contusion of right front wall of thorax, initial encounter (principal); F17.200 Nicotine dependence, unspecified, uncomplicated; Z88.5 Allergy status to narcotic agent; Z88.6 Allergy status to analgesic agent; W10.9XXA Fall (on) (from) unspecified stairs and steps, initial encounter
CPT/HCPCS: 71101; 99283; 96372; J2270